=== PATIENT | female | born 1940 | race Caucasian/White ===

== ENCOUNTER 2016-05-14 08:00 | Outpatient (CLI) | payer MEDICARE, OTHER | END 2016-05-14 23:59 | disposition home or self-care (01) | DX: R61 Generalized hyperhidrosis (principal); R30.0 Dysuria; R68.83 Chills (without fever) ==

== ENCOUNTER 2016-05-28 09:38 | Outpatient (CLI) | payer MEDICARE, OTHER | END 2016-05-28 09:39 | disposition home or self-care (01) | DX: Z12.31 Encounter for screening mammogram for malignant neoplasm of breast (principal) ==

== ENCOUNTER 2016-09-30 12:06 | Outpatient (CLI) | payer MEDICARE, OTHER ==
--- NOTE | 2016-09-30 15:48 | XRAY Report ---
RIGHT HAND, THREE VIEWS: 09/30/2016 CLINICAL HISTORY: A 75-year-old female who injured her hand several days ago. FINDINGS: Significant osteoarthritis is seen in the distal interphalangeal joints of the fingers and thumbs of the right hand with relative sparing of the distal interphalangeal joint of the right ring finger. The thumb, index, middle , and little fingers show marked joint space narrowing with spurring, subchondral cyst formation, and erosive change in and about the distal interphalangeal joints. Moderate degree of narrowing is noted of proximal interphalangeal joints with mild spurring. Mild narrowing of the first, second, third, and fourth MP joints. Significant narrowing is noted at the articulation between the base of the first metacarpal and trapezium with prominent spurring extending from the radial aspect of the trapezium. Also, some spurring is noted from its ulnar aspect. Mild narrowing is noted between the navicular and trapezium/trapezoid. Mild soft tissue swelling is noted adjacent to the right navicular bone without obvious navicular bone fracture. If this is a strong area of clinical concern, additional studies such as a right wrist and special navicular bone view could be obtained for further evaluation. Soft tissue swelling is also seen about the distal interphalangeal joints of the index, middle, and little fingers related to Heberden's nodes as a result of osteoarthritis. IMPRESSION: 1. NO ACUTE FRACTURE IS SEEN IN THE RIGHT HAND. 2. SIGNIFICANT OSTEOARTHRITIC CHANGE IS DETECTED IN THE RIGHT HAND AND AT THE ARTICULATION BETWEEN THE BASE OF THE FIRST METACARPAL AND TRAPEZIUM. WITHOUT OBVIOUS FRACTURE SEEN ON ROUTINE HAND VIEWS, 3. SOFT TISSUE SWELLING IS SEEN ADJACENT TO THE NAVICULAR BONE WITHOUT FRACTURE ON HAND XRAYS. IF THIS AREA IS OF STRONG CLINICAL CONCERN, ADDITIONAL STUDIES SUCH A RIGHT WRIST AND NAVICULAR BONE COULD BE OBTAINED FOR FURTHER EVALUATION. [facility]
--- NOTE | 2016-09-30 15:56 | XRAY Preliminary Report ---
Exam: XR Hand 3 View RT IMPRESSION: 1. Severe degenerative joint disease at the right first carpal metacarpal, first interphalangeal, sec ond, third, and fifth distal interphalangeal joints. Mild to moderate degenerative disk disease in th e rest of the interphalangeal joints. Moderate volar subluxation at the third and fifth distal interp halangeal joints most likely degenerative. [facility] SITE ID: [id number]
== END 2016-09-30 12:07 | disposition home or self-care (01) ==
LOC: DI 12:06
PROVIDERS: ATTEND Physician Assistant Medical
DX: M19.041 Primary osteoarthritis, right hand (principal); M79.89 Other specified soft tissue disorders

== ENCOUNTER 2016-10-01 11:42 | Outpatient (CLI) | payer MEDICARE, OTHER ==
--- NOTE | 2016-10-01 12:49 | XRAY Report ---
FOUR-VIEW RIGHT WRIST: 10/01/2016 CLINICAL HISTORY: A 75-year-old female with wrist pain primarily at the base of the thumb. COMPARISON: None. FINDINGS: Mild soft tissue swelling is noted adjacent to the radial aspect of the articulation betwe en the base of the 1st metacarpal and adjacent trapezium. Significant osteoarthritis is noted at thi s articulation. Marked joint space narrowing is seen. Prominent subchondral cyst formation is noted along the subarticular surface of the base of 1st metacarpal. Prominent spurring is seen along the radial aspect of the trapezium. Sclerosis is seen along the adjacent articular surfaces of the base of the 1st metacarpal and trapezium. Navicular bone shows no fracture. Minimal narrowing is noted at the articulation between the navicul ar bone and trapezium. The right radiocarpal joint appears normal. The proximal row of carpal bones appears normal. IMPRESSION: 1. FOCAL SOFT TISSUE SWELLING IS SEEN ALONG THE RADIAL ASPECT OF THE ARTICULATION BETWEEN THE BASE O F THE 1ST METACARPAL AND TRAPEZIUM. SEVERE OSTEOARTHRITIS IS DETECTED AT THIS ARTICULATION. 2. NAVICULAR BONE SHOWS NO SIGNIFICANT ABNORMALITY. COMMENT: Dr. Lawson informed patient's healthcare provider, Jacinta Naranjo of the above findings. Th is was done on 10/01/2016 at 12:10 p.m. JOB #: [id number] EXT JOB #:[id number]
== END 2016-10-01 11:43 | disposition home or self-care (01) ==
LOC: DI 11:42
PROVIDERS: ATTEND Physician Assistant Medical
DX: M19.031 Primary osteoarthritis, right wrist (principal); R22.31 Localized swelling, mass and lump, right upper limb

== ENCOUNTER 2016-12-10 09:31 | Outpatient (CLI) | payer MEDICARE, OTHER ==
--- NOTE | 2016-12-10 11:36 | DEXA Report ---
DEXA SCAN: 12/10/2016 CLINICAL INDICATION: Postmenopausal screening. TECHNIQUE: Dual energy x-ray absorptiometry (DXA) was performed on a [employer] Resume system. Regions measured are the AP spine, femoral neck, and, if needed, forearm. COMPARISON: None. In accordance with the International Society for Clinical Densitometry (ISCD) guidelines, data from previous exams may be reanalyzed using current recommendations and techniques. This is done to allow a more accurate basis for comparison with the current study. The data for the hip is as follows: REGION BMD (g/cm/cm) T-SCORE Z-SCORE Neck 0.846 -1.4 0.2 TOTAL 0.939 -0.5 0.8 NOTE: The femoral neck or total proximal femur, whichever is lowest, is used for classification. The data for the forearm is as follows: REGION BMD (g/cm/cm) T-SCORE Z-SCORE 1/3 0.790 -1.0 1.3 NOTE: The 33% radius of the nondominant forearm is used for classification. IMPRESSION: 1. THE WHO CLASSIFICATION BASED ON THE INTERNATIONAL REFERENCE STANDARD IS OSTEOPENIA. THE FRACTURE RISK IS INCREASED. 2. LEFT FOREARM EVALUATION PERFORMED DUE TO HISTORY OF SPINE SURGERY. RECOMMENDATION: Patients with diagnosis of osteoporosis or osteopenia should have regular bone mineral density assessment. For those eligible for Medicare, routine testing is allowed once every 2 years. Testing frequency can be increased for patients who have rapidly progressing disease or for those who are receiving medical therapy to restore bone mass. COMMENT: World Health Organization (WHO) definitions for osteoporosis and osteopenia: NORMAL BMD: T-score at -1.0 or higher, fracture risk is low. OSTEOPENIA BMD: T-score between -1.0 and -2.5, fracture risk is increased. OSTEOPOROSIS BMD: T-score at -2.5 or lower, fracture risk high. National Osteoporosis Foundation recommends: 1. Obtain adequate dietary calcium (at least 1200 mg per day) and vitamin D (400 -800 international units per day). 2. Participate, as appropriate, in regular weightbearing and muscle- strengthening exercise. 3. Avoid tobacco use and reduce alcohol and caffeine intake. 4. For more detailed information see the website at www.NOF.org. MTDD
== END 2016-12-10 09:32 | disposition home or self-care (01) ==
LOC: DI 09:31
PROVIDERS: ATTEND Internal Medicine Rheumatology
DX: Z13.820 Encounter for screening for osteoporosis (principal); M85.89 Other specified disorders of bone density and structure, multiple sites
CPT/HCPCS: 77080

== ENCOUNTER 2017-01-14 15:57 | Outpatient (CLI) | payer MEDICARE, OTHER ==
[2017-01-14 16:38] LABS: BASOPHILS % (AUTO) 0.5 %; EOSINOPHILS # (AUTO) 0.1 10^3/uL (0.0-0.7); EOSINOPHILS % (AUTO) 0.7 %; HCT - HEMATOCRIT 42.1 % (37.0-47.0); HGB - HEMOGLOBIN 14.3 g/dL (12.0-16.0); LYMPHOCYTES # (AUTO) 1.2 10^3/uL (1.5-3.5); LYMPHOCYTES % (AUTO) 15.1 %; MEAN CORPUSCULAR HEMOGLOBIN 31.5 pg (27.0-31.0); MEAN CORPUSCULAR HGB CONC 33.8 g/dL (32.0-36.0); MEAN PLATELET VOLUME 7.5 fL (7.9-10.8); MONOCYTES # (AUTO) 0.6 10^3/uL (0.0-1.0); MONOCYTES % (AUTO) 7.9 %; NEUTROPHILS # (AUTO) 5.9 10^3/uL (1.5-6.6); NEUTROPHILS % (AUTO) 75.8 %; NUCLEATED RED BLOOD CELLS AUTO 0.1 /100WBC; RED BLOOD COUNT 4.53 10^6/uL (4.20-5.40); RED CELL DISTRIBUTION WIDTH 13.7 % (12.0-15.0); UNCORRECTED WHITE BLOOD COUNT 7.8 x10^3/uL; WHITE BLOOD COUNT 7.8 x10^3/uL (4.8-10.8)
[2017-01-14 17:42] LABS: ALBUMIN/GLOBULIN RATIO 1.4 (1.0-2.2); BILIRUBIN,TOTAL 0.7 mg/dL (0.2-1.0); BUN - BLOOD UREA NITROGEN 16 mg/dL (6-20); CALCIUM 9.8 mg/dL (8.5-10.3); CARBON DIOXIDE - CO2 25 mmol/L (21-32); CHLORIDE 103 mmol/L (101-111); CREATININE 0.8 mg/dL (0.4-1.0); GFR - MDRD 70 (>89); GLUCOSE 106 mg/dL (70-100); POTASSIUM 3.6 mmol/L (3.5-5.0); SODIUM 139 mmol/L (135-145); TOTAL PROTEIN 7.6 g/dL (6.7-8.2)
--- NOTE | 2017-01-15 10:06 | XRAY Report ---
THREE-VIEW LEFT FOOT: 01/14/2017 CLINICAL INDICATION: Foot pain. FINDINGS: AP, lateral, oblique views of the left foot demonstrate previous screw fusion of the 2nd t arsometatarsal joint. There is a nondisplaced fracture of the mid shaft of the 2nd metatarsal. Exte nsive arthritic changes are present, in the 1st and 5th metatarsophalangeal joints and interphalangea l joints. IMPRESSION: NONDISPLACED FRACTURE OF THE MID SHAFT OF THE 2ND METATARSAL. SCREW FUSION OF THE 2ND T ARSOMETATARSAL JOINT. EXTENSIVE ARTHRITIC CHANGES. JOB #: [id number] EXT JOB #:[id number]
== END 2017-01-14 15:58 | disposition home or self-care (01) ==
LOC: DI 15:57
PROVIDERS: ATTEND Physician Assistant Medical
DX: S92.325A Nondisplaced fracture of second metatarsal bone, left foot, initial encounter for closed fracture (principal); L40.50 Arthropathic psoriasis, unspecified; Z98.1 Arthrodesis status
CPT/HCPCS: 36415; 80053; 84550; 85025; 85651; 86140

== ENCOUNTER 2017-02-24 11:28 | Outpatient (CLI) | payer MEDICARE, OTHER ==
--- NOTE | 2017-02-24 13:01 | XRAY Report ---
MODIFIED BARIUM SWALLOW: 02/24/2017 CLINICAL INDICATION: Dysphagia. FINDINGS: Various consistencies of barium were prepared and administered in conjunction with Speech Pathology. There was no evidence of penetration or aspiration with any administered consistency. Pl ease also refer to full report from Speech Pathology. IMPRESSION: NO EVIDENCE OF PENETRATION OR ASPIRATION. FLUOROSCOPY TIME: 1 minute, 8 seconds; 1 spot image obtained (cinefluoroscopy recorded). JOB #: [id number] EXT JOB #:[id number]
== END 2017-02-24 11:29 | disposition home or self-care (01) ==
LOC: DI 11:28
PROVIDERS: ATTEND Physician Assistant Medical
DX: R13.10 Dysphagia, unspecified (principal)
CPT/HCPCS: 74230; 92611; G8996; G8997; G8998

== ENCOUNTER 2017-03-31 14:55 | Outpatient (CLI) | payer MEDICARE, OTHER ==
[2017-03-31 15:17] LABS: BASOPHILS # (AUTO) 0.1 10^3/uL (0.0-0.1); BASOPHILS % (AUTO) 0.9 %; EOSINOPHILS # (AUTO) 0.3 10^3/uL (0.0-0.7); EOSINOPHILS % (AUTO) 2.7 %; HCT - HEMATOCRIT 40.7 % (37.0-47.0); LYMPHOCYTES % (AUTO) 20.4 %; MEAN CORPUSCULAR HEMOGLOBIN 31.7 pg (27.0-31.0); MEAN CORPUSCULAR HGB CONC 34.5 g/dL (32.0-36.0); MEAN CORPUSCULAR VOLUME 91.8 fL (81.0-99.0); MEAN PLATELET VOLUME 7.5 fL (7.9-10.8); MONOCYTES % (AUTO) 9.7 %; NEUTROPHILS # (AUTO) 6.6 10^3/uL (1.5-6.6); NEUTROPHILS % (AUTO) 66.3 %; RED BLOOD COUNT 4.43 10^6/uL (4.20-5.40); RED CELL DISTRIBUTION WIDTH 13.5 % (12.0-15.0)
[2017-03-31 15:28] LABS: ALBUMIN/GLOBULIN RATIO 1.3 (1.0-2.2); BILIRUBIN,TOTAL 0.5 mg/dL (0.2-1.0); CALCIUM 9.3 mg/dL (8.5-10.3); CREATININE 0.8 mg/dL (0.4-1.0); POTASSIUM 3.7 mmol/L (3.5-5.0); TOTAL PROTEIN 6.8 g/dL (6.7-8.2)
--- NOTE | 2017-03-31 15:50 | XRAY Report ---
TWO VIEW CHEST: 03/31/2017 CLINICAL INDICATION: Cough. COMPARISON: 12/29/2015. FINDINGS: Frontal and lateral views of the chest demonstrate a normal cardiac silhouette. A moderate hiatal hernia is present. The lungs are clear. No effusion or pneumothorax is present. IMPRESSION: MODERATE HIATAL HERNIA. NO EVIDENCE OF ACUTE CARDIOPULMONARY DISEASE. JOB #: [id number] EXT JOB #:[id number]
== END 2017-03-31 14:56 | disposition home or self-care (01) ==
LOC: DI 14:55
PROVIDERS: ATTEND Physician Assistant Medical
DX: R05 Cough (principal); K44.9 Diaphragmatic hernia without obstruction or gangrene; Z79.899 Other long term (current) drug therapy
CPT/HCPCS: 36415; 71020; 80053; 85025

== ENCOUNTER 2017-04-11 09:31 | Outpatient (CLI) | payer MEDICARE, OTHER ==
--- NOTE | 2017-04-11 13:55 | CT Report ---
CT OF THE CHEST WITHOUT CONTRAST: 04/11/2017 CLINICAL INDICATION: Cough. COMPARISON: Chest x-ray of 03/31/2017, CT of chest of 05/27/2013. TECHNIQUE: Axial CT images of the chest were obtained without intravenous contrast. FINDINGS: The heart and great vessels demonstrate minimal atherosclerotic calcifications. No hilar o r mediastinal lymphadenopathy is present. A moderate hiatal hernia is seen. The lungs demonstrate min imal dependent atelectasis. No pulmonary nodule or mass lesion is present. No effusion or pneumothora x is seen. The osseous structures demonstrate degenerative changes. Limited evaluation of upper abdom inal structures demonstrates normal adrenal glands. IMPRESSION: MINIMAL ATELECTASIS. MODERATE HIATAL HERNIA. NO PULMONARY NODULE OR MASS LESION. In accordance with CT protocol optimization, one or more of the following dose reduction techniques w ere utilized for this exam: automated exposure control, adjustment of mA and/or KV based on patient size, or use of iterative reconstructive technique. JOB #: [id number] EXT JOB #:[id number]
== END 2017-04-11 09:32 | disposition home or self-care (01) ==
LOC: DI 09:31
PROVIDERS: ATTEND Physician Assistant Medical
DX: R05 Cough (principal); J98.11 Atelectasis; K44.9 Diaphragmatic hernia without obstruction or gangrene
CPT/HCPCS: 71250

== ENCOUNTER 2017-05-04 16:22 | Emergency (ER) | payer MEDICARE, OTHER ==
[2017-05-04 16:27] VITALS: BP 164/84
[2017-05-04] MEDS ORDERED: LIDOCAINE 1% 2 ML VIAL SUBQ STA (16:44)
--- NOTE | 2017-05-04 16:44 | ED Physician Documentation ---
PD HPI LOWER EXT INJURY - Stated complaint Stated Complaint: R LEG LAC - Chief complaint Chief Complaint: Laceration - History obtained from History obtained from: Patient - History of Present Illness PD HPI LOW EXT INJURY LOCATION: Right, Lower leg Type of injury: Blunt / blow Where injury occurred: Home Timing - onset: Today Timing - duration: Minutes Timing - details: Abrupt onset, Still present Improved by: Rest, Immobilization Worsened by: Moving, Palpating Associated symptoms: No: Weakness, Numbness, Tingling Contributing factors: No: Anticoagulated Similar symptoms before: Diagnosis (thin skin laceration) Recently seen: Not recently seen - Additional information Additional information: 76-year-old female went to lunch today and was getting back into her car when the door hit her lower leg. She has thin skin and has a tear of the skin on her right calf. Review of Systems Constitutional: denies: Fever Eyes: denies: Decreased vision Nose: denies: Congestion Respiratory: denies: Cough GI: denies: Vomiting Skin: reports: Laceration (s) Musculoskeletal: reports: Extremity pain. denies: Neck pain, Back pain Neurologic: denies: Generalized weakness, Focal weakness PD PAST MEDICAL HISTORY - Past Medical History Past Medical History: Yes Cardiovascular: Atrial fibrillation Respiratory: None, Pneumonia Neuro: None Endocrine/Autoimmune: None GI: None COOK STARCH: None : None HEENT: None Psych: None Musculoskeletal: Other Derm: Psoriasis - Past Surgical History Past Surgical History: Yes General: Cholecystectomy, Appendectomy, Colonoscopy Ortho: Other /COOK STARCH: Dilation and currettage, Hysterectomy - Present Medications Home Medications: Ambulatory Orders Medication Instructions Recorded Confirmed Aspirin [Aspir 81] 81 mg PO DAILY 11/08/12 12/29/15 Hydrochlorothiazide 25 mg PO DAILY 11/08/12 12/29/15 Multivitamin [Multi-Vitamin Daily] 1 each PO DAILY 11/08/12 12/29/15 [place]-3/Dha/Epa/Fish Oil [Fish Oil 2 each PO DAILY 11/08/12 12/29/15 1,000 mg Softgel] Pantoprazole Sodium [Protonix] 20 mg PO BID 11/08/12 12/29/15 Potassium Gluconate [Potassium] 10 meq PO DAILY 11/08/12 12/29/15 Vit C/Ascorbate Ca/Ascorb Sod 500 mg PO DAILY 11/08/12 12/29/15 [Vitamin C 500 mg/15 ml Liquid] traMADol [Ultram] 100 mg PO Q6H 11/08/12 12/29/15 Celecoxib [CeleBREX] 200 mg PO DAILY 05/27/13 12/29/15 Estrogens, Conjugated [Premarin] 0.3 mg PO 05/27/13 01/25/15 diltiaZEM CD [Cardizem Cd] 300 mg PO DAILY 05/27/13 12/29/15 Calcium Carb/D3/Magnesium/Zinc 1 tab PO DAILY 01/24/15 12/29/15 [Tate Mag Zinc + D Tablet] Cholecalciferol (Vitamin D3) 2,000 unit PO DAILY 01/24/15 12/29/15 [Vitamin D-3] Vitamin B Complex [B Complex] 1 tab PO DAILY 01/24/15 12/29/15 Cyclosporine [Restasis] 1 applic OP BID 12/29/15 12/29/15 Etanercept [Enbrel] 50 mg SQ 12/29/15 Gabapentin [Gabapentin] 400 mg ORAL DAILY 12/29/15 12/29/15 Lidocaine [Lidocaine] 1 patch TOP DAILY 12/29/15 12/29/15 Magnesium Oxide [Magnesium] 400 mg PO 12/29/15 Prednisone 1 tab ORAL DAILY 12/29/15 12/29/15 Solifenacin Succinate [Vesicare] 1 tab ORAL DAILY 12/29/15 12/29/15 - Allergies Allergies/Adverse Reactions: Allergies Allergy/AdvReac Type Severity Reaction Status Date / Time leflunomide AdvReac Emesis Verified 12/29/15 11:03 methotrexate AdvReac Unknown Verified 12/29/15 11:03 milk AdvReac Cramps Verified 12/29/15 11:03 mushroom AdvReac Nausea Verified 12/29/15 11:03 - Social History Does the pt smoke?: Yes Smoking Status: Former smoker Does the pt have substance abuse?: No - Immunizations Immunizations are current?: Yes - POLST Patient has POLST: No PD ED PE NORMAL - Vitals Vital signs reviewed: Yes (hypertensive) - General General: No acute distress, Well developed/nourished - HEENT HEENT: Atraumatic, PERRL - Respiratory Respiratory: No respiratory distress - Derm Derm: Normal color, Warm and dry, No rash - Extremities Extremities: No deformity, No edema, Other (There is a 4cm flap laceration over the anterior right calf about mid calf. Distal n/v is intact. The wound is clean. ) Results - Vitals Vitals: Vital Signs - 24 hr 05/04/ 16:26 Temperature 36.0 C L Heart Rate 87 Respiratory 16 Rate Blood Pressure 164/84 H O2 Saturation 97 Oxygen O2 Source Room air Procedures - Laceration (location) left calf Length in cm: 4 Wound type: Curved, Flap, Clean Neurovascular status: Sensory intact, Motor intact, Vascular intact Anesthesia: Lidocaine 1% Wound Preparation: Hibiclens, Irrigated copiously NS, Wound explored, To the base Skin layer closure: Nylon, Interrupted, Size #-0 - enter number (5-0), Sutures - enter # (10) Other: Patient tolerated well, No complications, Neurovascular intact, Dressing applied, Tetanus UTD Complexity: Simple PD MEDICAL DECISION MAKING - ED course Complexity details: considered differential, d/w patient ED course: 76-year-old female with thin skin and a flap laceration on the calf has a distraction of the flap and sutures are indicated. Sutures are placed without difficulty the patient is up-to-date on her immunizations. Departure - Departure Disposition: 01 Home, Self Care Clinical Impression: Laceration of calf Qualifiers: Encounter type: initial encounter Laterality: right Qualified Code(s): S81.811A - Laceration without foreign body, right lower leg, initial encounter Condition: Stable Instructions: ED Laceration All Follow-Up: Jacinta Naranjo PA-C [Primary Care Provider] - Comments: Sutures will need to be removed and 10-14 days
== END 2017-05-04 17:21 | disposition home or self-care (01) ==
LOC: ED 16:22
DX: S81.811A Laceration without foreign body, right lower leg, initial encounter (principal); V48.4XXA Person boarding or alighting a car injured in noncollision transport accident, initial encounter; Z79.82 Long term (current) use of aspirin; Z87.891 Personal history of nicotine dependence
CPT/HCPCS: 12002; 99282; 99283

== ENCOUNTER 2017-08-11 08:01 | Outpatient (CLI) | payer MEDICARE, OTHER ==
[2017-08-11 08:39] LABS: CREATININE 0.8 mg/dL (0.4-1.0)
[2017-08-11] MEDS ORDERED: GADOBUTROL 7.5 MMOL/7.5 ML VIAL ONE (09:38)
[2017-08-11] MEDS ORDERED: GADOBUTROL 7.5 MMOL/7.5 ML VIAL IVP ONE (10:02)
--- NOTE | 2017-08-11 19:17 | MRI Report ---
EXAM: MRI PELVIS WITHOUT AND WITH CONTRAST EXAM DATE: 08/11/2017 10:16 AM. CLINICAL HISTORY: HIP JOINT PAIN, LEG PAIN, LEFT. COMPARISON: None. TECHNIQUE: Multiplanar, multisequence T1-weighted and fluid-sensitive sequences of the pelvis before and after administration of intravenous contrast. IV contrast: Gadolinium. Other: None. FINDINGS: Bones: No fractures or subluxations. No marrow edema or abnormal enhancement. No bone lesions. Lower Lumbar Spine: Unremarkable. Sacroiliac Joints: No effusion or sacroiliitis. Right Hip: No acetabular retroversion. Femoral head/neck offset is within normal limits. No effusion. Left Hip: No acetabular retroversion. Femoral head/neck offset is within normal limits. No effusion. Symphysis Pubis: Unremarkable. Musculature: Partial tear is noted of the proximal hamstring common tendon and proximal semimembranos us tendon. There is synovial thickening and increased signal inferior aspect ischial tuberosity likel y secondary to bursitis. Pelvic Cavity: The visualized bowel, bladder, and reproductive organs are unremarkable. No lymphadeno zehra. No free fluid in the pelvis. Other: The visualized sciatic nerves are unremarkable. No bursitis. The subcutaneous tissues are unre markable. No abscess or cellulitis. 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 [facility] MUSCULOSKELETAL RADIOLOGY SECTION Referring Provider Line: [phone] SITE ID: [id number]
== END 2017-08-11 08:02 | disposition home or self-care (01) ==
LOC: LAB 08:01
PROVIDERS: ATTEND Physician Assistant Medical
DX: S76.892A Other injury of other specified muscles, fascia and tendons at thigh level, left thigh, initial encounter (principal); Z79.899 Other long term (current) drug therapy
CPT/HCPCS: 36415; 72197; 82565; A9585

== ENCOUNTER 2017-09-04 10:54 | Outpatient (CLI) | payer MEDICARE, OTHER ==
[2017-09-04] MEDS ORDERED: IOPAMIDOL-300 100 ML VIAL ONE (11:32)
[2017-09-04] MEDS ORDERED: IOPAMIDOL-300 50 ML VIAL ONE (11:32)
[2017-09-04] MEDS ORDERED: IOPAMIDOL-300 50 ML VIAL PO ONE (15:51)
[2017-09-04] MEDS ORDERED: IOPAMIDOL-300 100 ML VIAL IVP ONE (15:51)
--- NOTE | 2017-09-04 17:34 | CT Report ---
CT ABDOMEN AND PELVIS WITH CONTRAST: 09/04/2017 CLINICAL INDICATION: Night sweats. TECHNIQUE: Axial CT images of the abdomen and pelvis were obtained with 100 mL Isovue-300 intravenously as well as oral contrast. COMPARISON: No previous CT is available for comparison. FINDINGS: Limited evaluation of the lung bases demonstrates a moderate hiatal hernia. ABDOMEN: There is a small cyst in the left lobe of the liver. No suspicious hepatic lesion or intrahepatic biliary dilatation is present. The patient is status post cholecystectomy. The spleen, pancreas, kidneys and adrenal glands are unremarkable. No bowel dilatation, free gas, or free fluid is present. No abdominal adenopathy is seen. PELVIS: Sigmoid diverticulosis is present, without CT evidence of diverticulitis. Postoperative changes of hysterectomy are present. No pelvic adenopathy or free fluid is present. Osseous structures demonstrate degenerative and postsurgical changes. IMPRESSION: NO EVIDENCE OF ADENOPATHY. POSTOPERATIVE CHANGES. CT DOSE REDUCTION STATEMENT In accordance with CT protocol optimization, one or more of the following dose reduction techniques were utilized for this exam: automated exposure control, adjustment of mA and/or KV based on patient size, or use of iterative reconstructive technique. TD: 09/04/2017 17:32
== END 2017-09-04 10:55 | disposition home or self-care (01) ==
LOC: DI 10:54
PROVIDERS: ATTEND Physician Assistant Medical
DX: R61 Generalized hyperhidrosis (principal)
CPT/HCPCS: 74177; Q9967

== ENCOUNTER 2017-09-25 11:37 | Outpatient (CLI) | payer MEDICARE, OTHER ==
[2017-09-25 12:01] LABS: BASOPHILS % (AUTO) 0.3 %; EOSINOPHILS # (AUTO) 0.1 10^3/uL (0.0-0.7); EOSINOPHILS % (AUTO) 0.4 %; LYMPHOCYTES # (AUTO) 0.6 10^3/uL (1.5-3.5); LYMPHOCYTES % (AUTO) 4.2 %; MEAN CORPUSCULAR HGB CONC 33.7 g/dL (32.0-36.0); MEAN CORPUSCULAR VOLUME 97.8 fL (81.0-99.0); MEAN PLATELET VOLUME 8.1 fL (7.9-10.8); MONOCYTES # (AUTO) 1.3 10^3/uL (0.0-1.0); MONOCYTES % (AUTO) 9.2 %; NEUTROPHILS # (AUTO) 12.4 10^3/uL (1.5-6.6); NEUTROPHILS % (AUTO) 85.9 %; PLT - PLATELET COUNT 217 10^3/uL (130-450); RED BLOOD COUNT 4.55 10^6/uL (4.20-5.40); RED CELL DISTRIBUTION WIDTH 13.8 % (12.0-15.0); WHITE BLOOD COUNT 14.5 x10^3/uL (4.8-10.8)
[2017-09-25 12:14] LABS: ALBUMIN 3.7 g/dL (3.2-5.5); BILIRUBIN,TOTAL 1.3 mg/dL (0.2-1.0); CALCIUM 9.2 mg/dL (8.5-10.3); CREATININE 0.7 mg/dL (0.4-1.0); TOTAL PROTEIN 7.4 g/dL (6.7-8.2)
[2017-09-25 12:21] LABS: BILIRUBIN,URINE NEGATIVE (NEGATIVE); GLUCOSE, URINE (UA) NEGATIVE (NEGATIVE); KETONES,URINE (UA) 15 mg/dL (NEGATIVE); LEUKOCYTE ESTERASE, URINE NEGATIVE (NEGATIVE); NITRITE,URINE NEGATIVE (NEGATIVE); OCCULT BLOOD,URINE NEGATIVE (NEGATIVE); PH,URINE 5.5 PH (5.0-7.5); PROTEIN,URINE 30 mg/dL (NEGATIVE); UROBILINOGEN,URINE 0.2 (NORMAL) E.U./dL (NORMAL)
[2017-09-25 12:25] LABS: CLARITY,URINE SL. CLOUDY (CLEAR)
[2017-09-25 12:42] LABS: BACTERIA,URINE Moderate /HPF (None Seen); CASTS, URINE 0-2 Cellular Casts /LPF; MUCUS,URINE Moderate Strands; RBC,URINE None Seen /HPF (0-5); SQUAMOUS EPITHELIAL CELL,UR MOD Squamous (<= Few)
--- NOTE | 2017-09-25 13:00 | XRAY Report ---
TWO VIEW CHEST: 09/25/2017 CLINICAL INDICATION: Upper respiratory infection, fever. COMPARISON: 03/31/2017. FINDINGS: Frontal and lateral views of the chest demonstrate a normal cardiac silhouette. Hiatal hernia is again noted. There are patchy peripheral infiltrates present in the left lung. No effusion or pneumothorax is seen. IMPRESSION: PATCHY PERIPHERAL INFILTRATES IN THE LEFT LUNG. TD: 09/25/2017 12:38
== END 2017-09-25 11:38 | disposition home or self-care (01) ==
LOC: LAB 11:37
PROVIDERS: ATTEND Physician Assistant Medical
DX: R91.8 Other nonspecific abnormal finding of lung field (principal); R32 Unspecified urinary incontinence; R50.9 Fever, unspecified; J06.9 Acute upper respiratory infection, unspecified
CPT/HCPCS: 36415; 71046; 80053; 81001; 81003; 85025; 87040; 87086

== ENCOUNTER 2017-10-09 09:30 | Outpatient (CLI) | payer MEDICARE, OTHER | END 2017-10-09 09:31 | LOC: LAB.R 09:30 | PROVIDERS: ATTEND Physician Assistant Medical | DX: N30.00 Acute cystitis without hematuria (principal) | CPT/HCPCS: 87077; 87086; 87181 ==

== ENCOUNTER 2017-10-10 09:51 | Emergency (ER) | payer MEDICARE, OTHER ==
[2017-10-10] MEDS ORDERED: SODIUM CHLORIDE 0.9% 1,000 ML IV ONE (10:13)
[2017-10-10] MEDS ORDERED: cefTRIAXone 1 GM in SODIUM CHLORIDE 0.9% MINIBAG 100 ML IV STA (10:13)
--- NOTE | 2017-10-10 10:16 | ED Physician Documentation ---
PD HPI BACK PAIN - Stated complaint Stated Complaint: LOWER BACK PX - Chief complaint Chief Complaint: General - History obtained from History obtained from: Patient, Family - History of Present Illness Timing - onset: Yesterday Timing - duration: Days (1) Timing - details: Gradual onset, Still present Location: Mid, Left Quality: Pain, Spasm, Sharp Associated symptoms: No: Fever, Weakness, Numbness Improves with: Rest, Position Worsened by: Movement, Palpation Contributing factors: Other (has UTI) Similar symptoms before: Has not had sx before Recently seen: Clinic - Additional information Additional information: 76-year-old female with a history of atrial fibrillation has developed acute pain in her left flank. She was diagnosed yesterday with urinary tract infection and put on Keflex. She developed the pain later in the afternoon. She has not had nausea or vomiting. She has had the onset of the pain associated with movement. She has pain with movement and palpation and the pain appears to be over the left kidney area. She has not had fever. Review of Systems Constitutional: denies: Fever Eyes: denies: Decreased vision Ears: denies: Ear pain Nose: denies: Rhinorrhea / runny nose, Congestion Throat: denies: Sore throat Cardiac: denies: Chest pain / pressure, Palpitations Respiratory: denies: Dyspnea, Cough GI: reports: Abdominal Pain. denies: Nausea, Vomiting : reports: Dysuria, Frequency Skin: denies: Rash Musculoskeletal: reports: Back pain. denies: Neck pain, Extremity pain PD PAST MEDICAL HISTORY - Past Medical History Past Medical History: Yes Cardiovascular: Atrial fibrillation Respiratory: None, Pneumonia Endocrine/Autoimmune: None GI: None CARPET TECHNICIAN: None : Kidney stones HEENT: None Psych: None Musculoskeletal: Other Derm: Psoriasis - Past Surgical History Past Surgical History: Yes General: Cholecystectomy, Appendectomy, Colonoscopy Ortho: Other /CARPET TECHNICIAN: Dilation and currettage, Hysterectomy - Present Medications Home Medications: Ambulatory Orders Medication Instructions Recorded Confirmed Aspirin [Aspir 81] 81 mg PO DAILY 11/08/12 12/29/15 Hydrochlorothiazide 25 mg PO DAILY 11/08/12 12/29/15 Multivitamin [Multi-Vitamin Daily] 1 each PO DAILY 11/08/12 12/29/15 [place]-3/Dha/Epa/Fish Oil [Fish Oil 2 each PO DAILY 11/08/12 12/29/15 1,000 mg Softgel] Pantoprazole Sodium [Protonix] 20 mg PO BID 11/08/12 12/29/15 Potassium Gluconate [Potassium] 10 meq PO DAILY 11/08/12 12/29/15 Vit C/Ascorbate Ca/Ascorb Sod 500 mg PO DAILY 11/08/12 12/29/15 [Vitamin C 500 mg/15 ml Liquid] traMADol [Ultram] 100 mg PO Q6H 11/08/12 12/29/15 Celecoxib [CeleBREX] 200 mg PO DAILY 05/27/13 12/29/15 Estrogens, Conjugated [Premarin] 0.3 mg PO 05/27/13 01/25/15 diltiaZEM CD [Cardizem Cd] 300 mg PO DAILY 05/27/13 12/29/15 Calcium Carb/D3/Magnesium/Zinc 1 tab PO DAILY 01/24/15 12/29/15 [Tate Mag Zinc + D Tablet] Cholecalciferol (Vitamin D3) 2,000 unit PO DAILY 01/24/15 12/29/15 [Vitamin D-3] Vitamin B Complex [B Complex] 1 tab PO DAILY 01/24/15 12/29/15 Cyclosporine [Restasis] 1 applic OP BID 12/29/15 12/29/15 Etanercept [Enbrel] 50 mg SQ 12/29/15 Gabapentin [Gabapentin] 400 mg ORAL DAILY 12/29/15 12/29/15 Lidocaine [Lidocaine] 1 patch TOP DAILY 12/29/15 12/29/15 Magnesium Oxide [Magnesium] 400 mg PO 12/29/15 Prednisone 1 tab ORAL DAILY 12/29/15 12/29/15 Solifenacin Succinate [Vesicare] 1 tab ORAL DAILY 12/29/15 12/29/15 HYDROcod/ACETAM 5/325 [[place] 5/325] 1 - 2 ea PO Q6H PRN #15 tablet 10/10/17 - Allergies Allergies/Adverse Reactions: Allergies Allergy/AdvReac Type Severity Reaction Status Date / Time leflunomide AdvReac Emesis Verified 12/29/15 11:03 methotrexate AdvReac Unknown Verified 12/29/15 11:03 milk AdvReac Cramps Verified 12/29/15 11:03 mushroom AdvReac Nausea Verified 12/29/15 11:03 - Social History Does the pt smoke?: Yes Smoking Status: Current every day smoker Does the pt drink ETOH?: Yes Does the pt have substance abuse?: No - Immunizations Immunizations are current?: Yes - POLST Patient has POLST: No PD ED PE NORMAL - Vitals Vital signs reviewed: Yes (hypertensive ) - General General: Alert and oriented X 3, No acute distress, Well developed/nourished - HEENT HEENT: Atraumatic, PERRL, EOMI - Neck Neck: Supple, no meningeal sign - Cardiac Cardiac: RRR, No murmur - Respiratory Respiratory: No respiratory distress, Clear bilaterally - Abdomen Abdomen: Soft, Non tender - Back Back: No spinal TTP, Other (There is tenderness to palpation over the left kidney. There is no overlying rib tenderness and the kidney is sonographically tender to palpaiton with the bedside ultrasound. ) - Derm Derm: Normal color, Warm and dry, No rash - Extremities Extremities: No deformity, No edema - Neuro Neuro: No motor deficit, No sensory deficit Eye Opening: Spontaneous Motor: Obeys Commands Verbal: Oriented GCS Score: 15 - Psych Psych: Normal mood, Normal affect Results - Vitals Vitals: Vital Signs - 24 hr 10/10/17 09:53 Temperature 36.4 C L Heart Rate 75 Respiratory 20 Rate Blood Pressure 149/79 H O2 Saturation 100 Oxygen O2 Source Room air - Labs Labs: Laboratory Tests 10/10/17 10/10/17 10/10/17 10:26 10:35 10:35 WBC 7.3 RBC 4.44 Hgb 14.5 Hct 42.7 MCV 96.0 MCH 32.6 H MCHC 33.9 RDW 13.2 Plt Count 489 H MPV 7.7 L Neut # (Auto) 3.7 Lymph # (Auto) 2.5 [place] # (Auto) 0.8 Eos # (Auto) 0.2 Baso # (Auto) 0.1 Absolute Nucleated RBC 0.00 Nucleated RBC % 0.0 Sodium 140 Potassium 3.6 Chloride 105 Carbon Dioxide 26 Anion Gap 9.0 BUN 9 Creatinine 0.7 Estimated GFR (MDRD) 82 L Glucose 91 Calcium 9.4 Total Bilirubin 0.6 AST 25 ALT 21 Alkaline Phosphatase 59 Troponin I Total Protein 7.0 Albumin 3.9 Globulin 3.1 Albumin/Globulin Ratio 1.3 Lipase 31 Urine Color YELLOW Urine Clarity CLEAR Urine pH 6.0 Ur Specific [place] 1.020 Urine Protein TRACE Urine Glucose (UA) NEGATIVE Urine Ketones TRACE Urine Occult Blood NEGATIVE Urine Nitrite NEGATIVE Urine Bilirubin NEGATIVE Urine Urobilinogen 0.2 (NORMAL) Ur Leukocyte Esterase NEGATIVE Ur Microscopic Review NOT INDICATED Urine Culture Comments NOT INDICATED 10/10/17 10:35 WBC RBC Hgb Hct MCV MCH MCHC RDW Plt Count MPV Neut # (Auto) Lymph # (Auto) [place] # (Auto) Eos # (Auto) Baso # (Auto) Absolute Nucleated RBC Nucleated RBC % Sodium Potassium Chloride Carbon Dioxide Anion Gap BUN Creatinine Estimated GFR (MDRD) Glucose Calcium Total Bilirubin AST ALT Alkaline Phosphatase Troponin I < 0.04 Total Protein Albumin Globulin Albumin/Globulin Ratio Lipase Urine Color Urine Clarity Urine pH Ur Specific [place] Urine Protein Urine Glucose (UA) Urine Ketones Urine Occult Blood Urine Nitrite Urine Bilirubin Urine Urobilinogen Ur Leukocyte Esterase Ur Microscopic Review Urine Culture Comments Procedures - Bedside sono Bedside sono by EMP: With use of bedside ultrasound the left kidney is imaged and it is sonographically tender without evidence of hydronephrosis or fluid collection. - IVC sono (time) 1002 Bedside IVC sono: IVC measures (cm) (1.12), IVC collapsed c insp (cm) (complete) , Dehydration (est 1-2 liters deficit) PD MEDICAL DECISION MAKING - ED course Complexity details: reviewed old records, reviewed results, re-evaluated patient , considered differential, d/w patient, d/w family ED course: 76-year-old female with an area in her back that is specifically tender and around the the left kidney has been treated for urinary tract infection yesterday. Despite relatively few doses of antibiotic the patient's urine looks entirely clear here today. Examination of the back reveals a specific area of tenderness and examination with the bedside ultrasound reveals this area is over the kidney but other areas where the kidney is palpated do not cause tenderness. My conclusion from this is that this patient's back pain is likely musculoskeletal in nature and not secondary to pyelonephritis. Here in the emergency department she was found to be mildly dehydrated she was administered a liter of saline and 1 g of Rocephin. She will continue her antibiotic and the urine culture from yesterday is pending. Departure - Departure Disposition: 01 Home, Self Care Clinical Impression: Back muscle spasm Condition: Stable Instructions: ED Spasm Back No Trauma Follow-Up: Jacinta Naranjo PA-C [Primary Care Provider] - Prescriptions: HYDROcod/ACETAM 5/325 [[place] 5/325] 1 - 2 ea PO Q6H PRN #15 tablet PRN Reason: Pain
[2017-10-10 10:38] LABS: BILIRUBIN,URINE NEGATIVE (NEGATIVE); CLARITY,URINE CLEAR (CLEAR); GLUCOSE, URINE (UA) NEGATIVE (NEGATIVE); KETONES,URINE (UA) TRACE mg/dL (NEGATIVE); LEUKOCYTE ESTERASE, URINE NEGATIVE (NEGATIVE); NITRITE,URINE NEGATIVE (NEGATIVE); OCCULT BLOOD,URINE NEGATIVE (NEGATIVE); PROTEIN,URINE TRACE mg/dL (NEGATIVE); UROBILINOGEN,URINE 0.2 (NORMAL) E.U./dL (NORMAL)
[2017-10-10 10:42] LABS: BASOPHILS # (AUTO) 0.1 10^3/uL (0.0-0.1); BASOPHILS % (AUTO) 1.4 %; EOSINOPHILS # (AUTO) 0.2 10^3/uL (0.0-0.7); EOSINOPHILS % (AUTO) 2.8 %; HGB - HEMOGLOBIN 14.5 g/dL (12.0-16.0); LYMPHOCYTES # (AUTO) 2.5 10^3/uL (1.5-3.5); LYMPHOCYTES % (AUTO) 33.7 %; MEAN CORPUSCULAR HEMOGLOBIN 32.6 pg (27.0-31.0); MEAN CORPUSCULAR HGB CONC 33.9 g/dL (32.0-36.0); MEAN PLATELET VOLUME 7.7 fL (7.9-10.8); MONOCYTES # (AUTO) 0.8 10^3/uL (0.0-1.0); MONOCYTES % (AUTO) 10.9 %; NEUTROPHILS # (AUTO) 3.7 10^3/uL (1.5-6.6); NEUTROPHILS % (AUTO) 51.2 %; PLT - PLATELET COUNT 489 10^3/uL (130-450); RED BLOOD COUNT 4.44 10^6/uL (4.20-5.40); RED CELL DISTRIBUTION WIDTH 13.2 % (12.0-15.0); WHITE BLOOD COUNT 7.3 x10^3/uL (4.8-10.8)
[2017-10-10 10:56] LABS: ALBUMIN 3.9 g/dL (3.2-5.5); ALBUMIN/GLOBULIN RATIO 1.3 (1.0-2.2); BILIRUBIN,TOTAL 0.6 mg/dL (0.2-1.0); CALCIUM 9.4 mg/dL (8.5-10.3); CREATININE 0.7 mg/dL (0.4-1.0)
[2017-10-10 11:59] VITALS: BP 138/74
== END 2017-10-10 11:59 | disposition home or self-care (01) ==
LOC: ED 09:51
DX: M62.830 Muscle spasm of back (principal); E86.0 Dehydration; F17.200 Nicotine dependence, unspecified, uncomplicated
CPT/HCPCS: 36415; 80053; 81001; 81003; 83690; 84484; 85025; 87086; 96361; 96365; 99283; 99284

== ENCOUNTER 2017-10-21 16:48 | Outpatient (CLI) | payer MEDICARE, OTHER ==
--- NOTE | 2017-10-22 08:25 | XRAY Report ---
Procedure Date: 10/21/2017 Accession Number: [id number] / [id number] Procedure: XR - Chest 2 View X-Ray CPT Code: 85993 FULL RESULT: EXAM: Chest 2 View X-Ray DATE: 10/21/2017 5:16 PM CLINICAL HISTORY: CHEST WALL MASS,RIGHT COMPARISON: 09/25/2017 TECHNIQUE: 2 view chest FINDINGS: The cardiac silhouette is mildly enlarged. Moderate hiatal hernia is stable. Patchy left infiltrates have resolved. No effusion or pneumothorax is seen. No definite abnormal calcification or ossification is appreciated in the right lateral chest wall included on the film. IMPRESSION: No definite chest wall mass identified. Further evaluation with CT or MRI may be helpful. Resolution of previously seen left-sided infiltrates. Stable cardiomegaly and hiatal hernia.
== END 2017-10-21 16:49 | disposition home or self-care (01) ==
LOC: DI 16:48
PROVIDERS: ATTEND Nurse Practitioner Primary Care
DX: R22.2 Localized swelling, mass and lump, trunk (principal); I51.7 Cardiomegaly; K44.9 Diaphragmatic hernia without obstruction or gangrene
CPT/HCPCS: 71046

== ENCOUNTER 2018-02-02 08:00 | Outpatient (CLI) | payer MEDICARE, OTHER | END 2018-02-02 08:01 | disposition home or self-care (01) | LOC: LAB.R 08:00 | PROVIDERS: ATTEND Physician Assistant Medical | DX: N30.00 Acute cystitis without hematuria (principal) | CPT/HCPCS: 87077; 87086; 87181 ==

== ENCOUNTER 2018-06-23 12:12 | Outpatient (CLI) | payer MEDICARE, OTHER | END 2018-06-23 12:13 | disposition home or self-care (01) | LOC: LAB 12:12 | PROVIDERS: ATTEND Internal Medicine Rheumatology | DX: M35.3 Polymyalgia rheumatica (principal); M15.0 Primary generalized (osteo)arthritis | CPT/HCPCS: 36415; 85651; 86140 ==

== ENCOUNTER 2018-12-14 11:00 | Outpatient (CLI) | payer MEDICARE, OTHER | END 2018-12-14 11:10 | disposition home or self-care (01) | LOC: LAB.R 11:00 | PROVIDERS: ATTEND Nurse Practitioner | DX: R30.0 Dysuria (principal) | CPT/HCPCS: 87086 ==

== ENCOUNTER 2018-12-14 12:35 | Emergency (ER) | payer MEDICARE, OTHER ==
[2018-12-14] MEDS ORDERED: diltiaZEM 30 MG TABLET PO STA (13:38)
[2018-12-14 14:00] LABS: BASOPHILS # (AUTO) 0.1 10^3/uL (0.0-0.1); BASOPHILS % (AUTO) 0.5 %; EOSINOPHILS # (AUTO) 0.1 10^3/uL (0.0-0.7); EOSINOPHILS % (AUTO) 0.5 %; HGB - HEMOGLOBIN 12.4 g/dL (12.0-16.0); LYMPHOCYTES # (AUTO) 1.5 10^3/uL (1.5-3.5); LYMPHOCYTES % (AUTO) 8.2 %; MEAN CORPUSCULAR HEMOGLOBIN 28.2 pg (27.0-31.0); MEAN CORPUSCULAR VOLUME 88.4 fL (81.0-99.0); MEAN PLATELET VOLUME 9.3 fL (7.9-10.8); MONOCYTES # (AUTO) 1.4 10^3/uL (0.0-1.0); MONOCYTES % (AUTO) 7.8 %; NEUTROPHILS # (AUTO) 14.6 10^3/uL (1.5-6.6); NEUTROPHILS % (AUTO) 82.2 %; PLT - PLATELET COUNT 326 10^3/uL (130-450); RED BLOOD COUNT 4.39 10^6/uL (4.20-5.40); RED CELL DISTRIBUTION WIDTH 15.3 % (12.0-15.0); WHITE BLOOD COUNT 17.7 x10^3/uL (4.8-10.8)
--- NOTE | 2018-12-14 14:04 | XRAY Report ---
Reason: palpitations Procedure Date: 12/14/2018 Accession Number: [id number] / [id number] Procedure: XR - Chest 1 View X-Ray CPT Code: 31620 FULL RESULT: EXAM: CHEST RADIOGRAPHY EXAM DATE: 12/14/2018 01:29 PM. CLINICAL HISTORY: Palpitations. COMPARISON: CHEST 2 VIEW 10/21/2017 5:09 PM. TECHNIQUE: 1 view. FINDINGS: Lungs/Pleura: No focal opacities evident. No pleural effusion. No pneumothorax. Mediastinum: Borderline cardiomegaly. There is a moderate sized hiatal hernia. Other: None. IMPRESSION: No acute intrathoracic plain film abnormality. RADIA
[2018-12-14 14:18] LABS: ALBUMIN 4.1 g/dL (3.2-5.5); ALBUMIN/GLOBULIN RATIO 1.4 (1.0-2.2); BILIRUBIN,TOTAL 0.6 mg/dL (0.2-1.0); CALCIUM 9.7 mg/dL (8.5-10.3); CREATININE 0.7 mg/dL (0.4-1.0); MAGNESIUM 2.2 mg/dL (1.7-2.8); PHOSPHORUS 3.7 mg/dL (2.5-4.6); TOTAL PROTEIN 7.1 g/dL (6.7-8.2)
--- NOTE | 2018-12-14 14:25 | ED Physician Documentation ---
History of Present Illness - Stated complaint Stated Complaint: SOA/RACING HEART - Chief complaint Chief Complaint: Cardiac - History obtained from History obtained from: Patient - History of Present Illness Timing: Today Pain level max: 0 Pain level now: 0 - Additonal information Additional information: 77-year-old female presents to the emergency department complaining of heart palpitations. These last for approximately 15 to 20 seconds at a time. Does have a history of atrial fibrillation. States that these are occurring more frequently than usual. Nothing makes it better or worse. No chest pain. Mild dyspnea occasionally. 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 Fontanez in [place]. Review of Systems Constitutional: denies: Fever, Chills Throat: denies: Sore throat Cardiac: reports: Palpitations. denies: Chest pain / pressure Respiratory: denies: Cough, Wheezing Skin: denies: Rash Musculoskeletal: denies: Neck pain, Back pain Neurologic: denies: Headache PD PAST MEDICAL HISTORY - Past Medical History Cardiovascular: Atrial fibrillation Respiratory: None, Pneumonia Endocrine/Autoimmune: None GI: None WOODS RIDER: None : Kidney stones HEENT: None Psych: None Musculoskeletal: Other Derm: Psoriasis - Past Surgical History Past Surgical History: Yes General: Cholecystectomy, Appendectomy, Colonoscopy Ortho: Other /WOODS RIDER: Dilation and currettage, Hysterectomy HEENT: Cataracts - Present Medications Home Medications: Ambulatory Orders Medication Instructions Recorded Confirmed Aspirin [Aspir 81] 81 mg PO DAILY 11/08/12 12/14/18 Hydrochlorothiazide 25 mg PO DAILY 11/08/12 12/14/18 Multivitamin [Multi-Vitamin Daily] 1 each PO DAILY 11/08/12 12/14/18 [place]-3/Dha/Epa/Fish Oil [Fish Oil 2 each PO DAILY 11/08/12 12/14/18 1,000 mg Softgel] Pantoprazole Sodium [Protonix] 40 mg PO BID 11/08/12 12/14/18 Vit C/Ascorbate Ca/Ascorb Sod 500 mg PO DAILY 11/08/12 12/14/18 [Vitamin C 500 mg/15 ml Liquid] traMADol [Ultram] 50 mg PO Q6H PRN 11/08/12 12/14/18 Celecoxib [CeleBREX] 200 mg PO BID 05/27/13 12/14/18 Estrogens, Conjugated [Premarin] 0.3 mg PO 05/27/13 01/25/15 diltiaZEM CD [Cardizem Cd] 300 mg PO DAILY 05/27/13 12/14/18 Calcium Carb/D3/Magnesium/Zinc 1 tab PO DAILY 01/24/15 12/29/15 [Tate Mag Zinc + D Tablet] Cholecalciferol (Vitamin D3) 2,000 unit PO DAILY 01/24/15 12/14/18 [Vitamin D-3] Vitamin B Complex [B Complex] 1 tab PO DAILY 01/24/15 12/29/15 Cyclosporine [Restasis] 1 applic OP BID 12/29/15 12/29/15 Etanercept [Enbrel] 50 mg SQ OAW 12/29/15 12/14/18 Gabapentin 300 mg ORAL DAILY 12/29/15 12/14/18 Lidocaine 1 patch TOP DAILY 12/29/15 12/29/15 Magnesium Oxide [Magnesium] 400 mg PO DAILY 12/29/15 12/14/18 Prednisone 4 mg ORAL DAILY 12/29/15 12/14/18 Solifenacin Succinate [Vesicare] 1 tab ORAL DAILY 12/29/15 12/29/15 HYDROcod/ACETAM 5/325 [[place] 5/325] 1 - 2 ea PO Q6H PRN #15 tablet 10/10/17 12/14/18 Cephalexin [Keflex] 500 mg PO Q6H #20 capsule 12/14/18 Cyclobenzaprine [Flexeril] 5 mg PO PRN PRN 12/14/18 12/14/18 Diltiazem HCl [Cardizem Cd] 360 mg PO DAILY #30 cap.er.24h 12/14/18 Mirabegron [Myrbetriq] 50 mg PO DAILY PM 12/14/18 12/14/18 Potassium Chloride 10 meq PO DAILY 12/14/18 12/14/18 Potassium Chloride 20 meq PO DAILY PM 12/14/18 12/14/18 - Allergies Allergies/Adverse Reactions: Allergies Allergy/AdvReac Type Severity Reaction Status Date / Time leflunomide AdvReac Emesis Verified 12/14/18 13:39 methotrexate AdvReac Unknown Verified 12/14/18 13:39 milk AdvReac Cramps Verified 12/14/18 13:39 mushroom AdvReac Nausea Verified 12/14/18 13:39 - Social History Does the pt smoke?: Yes Smoking Status: Current every day smoker Does the pt drink ETOH?: Yes Does the pt have substance abuse?: No - Immunizations Immunizations are current?: Yes - POLST Patient has POLST: No PD ED PE NORMAL - Vitals Vital signs reviewed: Yes - General General: Alert and oriented X 3, No acute distress, Well developed/nourished - HEENT HEENT: PERRL, Moist mucous membranes - Neck Neck: Supple, no meningeal sign - Cardiac Cardiac: RRR, Strong equal pulses - Respiratory Respiratory: No respiratory distress, Clear bilaterally - Abdomen Abdomen: Soft, Non tender, Non distended - Derm Derm: Warm and dry - Extremities Extremities: No edema, No calf tenderness / cord - Neuro Neuro: Alert and oriented X 3 - Psych Psych: Normal mood, Normal affect Results - Vitals Vitals: Oxygen O2 Source Room air - EKG (time done) 1248 Rate: Rate (enter#) (92) Rhythm: Other (sinus arrhythmia) [place]: Normal Intervals: Normal [place] QRS: Normal Ischemia: Normal ST segments 1251 Rate: Rate (enter#) (145) Rhythm: Atrial flutter (with variable block) [place]: Normal QRS: Normal Ischemia: Normal ST segments - Labs Labs: Laboratory Tests 12/14/18 12/14/18 13:55 13:55 WBC 17.7 H RBC 4.39 Hgb 12.4 Hct 38.8 MCV 88.4 MCH 28.2 MCHC 32.0 RDW 15.3 H Plt Count 326 MPV 9.3 Neut # (Auto) 14.6 H Lymph # (Auto) 1.5 [place] # (Auto) 1.4 H Eos # (Auto) 0.1 Baso # (Auto) 0.1 Absolute Nucleated RBC 0.00 Nucleated RBC % 0.0 Sodium 144 Potassium 4.0 Chloride 106 Carbon Dioxide 23 Anion Gap 15.0 H BUN 27 H Creatinine 0.7 Estimated GFR (MDRD) 81 L Glucose 102 H Calcium 9.7 Phosphorus 3.7 Magnesium 2.2 Total Bilirubin 0.6 AST 18 ALT 20 Alkaline Phosphatase 70 Total Protein 7.1 Albumin 4.1 Globulin 3.0 Albumin/Globulin Ratio 1.4 Lipase 38 - Rads (name of study) cxr Radiology: Prelim report reviewed, EMP read contemporaneously, See rad report (No acute disease) PD MEDICAL DECISION MAKING - ED course Complexity details: reviewed results, re-evaluated patient, considered differential, d/w patient, d/w lead consultant ED course: Patient appears to be having runs of atrial flutter with variable block. She is currently on Cardizem 300 mg p.o. daily. Discussed the case with her shell mold bonding machine operator who recommends increasing this to 360 mg p.o. daily. Given an extra 60 mg dose here and symptoms resolved. No significant electrolyte abnormalities. Patient counseled regarding signs and symptoms for which I believe and urgent re-evaluation would be necessary. Patient with good understanding of and agreement to plan and is comfortable going home at this time This document was made in part using voice recognition software. While efforts are made to proofread this document, sound alike and grammatical errors may occur. Patient was also diagnosed with the UTI by her doctor but not placed on antibiotics. She has a white count of 17,[address] will [address] her on antibiotics. Departure - Departure Disposition: 01 Home, Self Care Clinical Impression: Atrial flutter Qualifiers: Atrial flutter type: unspecified Qualified Code(s): I48.92 - Unspecified atrial flutter UTI (urinary tract infection) Qualifiers: Urinary tract infection type: site unspecified Hematuria presence: without hematuria Qualified Code(s): N39.0 - Urinary tract infection, site not specified Condition: Good Instructions: ED Paroxysmal Atrial Flutter, ED UTI Cystitis Female Follow-Up: Terry Austin MD [Primary Care Provider] - Madeleine Fontanez MD [Provider Admit Priv/Credential] - Within 1 week Prescriptions: Cephalexin [Keflex] 500 mg PO Q6H #20 capsule Diltiazem HCl [Cardizem Cd] 360 mg PO DAILY #30 cap.er.24h Comments: Return if you worsen. Continue your antibiotics at home. Increase your cardizem to 360mg by mouth daily. I spoke with Dr. Fontanez today. Take all antibiotics until gone. Return if you worsen. You should also discuss with your doctor being placed on an anticoagulant such as xarelto for your atrial flutter. Discharge Date/Time: 12/14/18 14:50
[2018-12-14] MEDS ORDERED: cefTRIAXone 1 GM VIAL IVP STA (14:29)
[2018-12-14 14:32] VITALS: BP 155/86
== END 2018-12-14 14:50 | disposition home or self-care (01) ==
LOC: ED 12:35
DX: I48.92 Unspecified atrial flutter (principal); N39.0 Urinary tract infection, site not specified; F17.200 Nicotine dependence, unspecified, uncomplicated
CPT/HCPCS: 36415; 71045; 80053; 83690; 83735; 84100; 85025; 93005; 96374; 99284; A9270; 84484

== ENCOUNTER 2019-01-10 16:26 | Emergency (ER) | payer MEDICARE, OTHER ==
--- NOTE | 2019-01-10 16:33 | ED Physician Documentation ---
PD HPI DYSPNEA - Stated complaint Stated Complaint: SOA/BEE STING - Chief complaint Chief Complaint: Allergic Rx - History obtained from History obtained from: Patient - History of Present Illness Timing - onset: How many minutes ago (20-30), Today Timing - onset during: Other (she was eating raspberries and did not notice a bee on it, so put it in her mouth. It stung her in the underside of the tongue. Her tongue started swelling promptly and has continued to swell more. She does have some general itching as well. No dyspnea per se. No lightheaded. Main discomfort is the amount of tongue swelling and feeling that it is about to fill her whole mouth/throat.) Timing - details: Abrupt onset Inciting event(s): Other (bee sting underside of the tongue) Associated symptoms: No: Fever, Cough, Wheezing Similar symptoms before: Has not had sx before Review of Systems Constitutional: denies: Fever, Chills Nose: denies: Rhinorrhea / runny nose, Congestion Throat: denies: Sore throat Cardiac: denies: Chest pain / pressure Respiratory: reports: Dyspnea. denies: Cough GI: denies: Nausea, Vomiting PD PAST MEDICAL HISTORY - Past Medical History Cardiovascular: Atrial fibrillation Respiratory: None, Pneumonia Endocrine/Autoimmune: None GI: None MANAGER OF ENGINEERING: None : Kidney stones HEENT: None Psych: None Musculoskeletal: Other Derm: Psoriasis - Past Surgical History Past Surgical History: Yes General: Cholecystectomy, Appendectomy, Colonoscopy Ortho: Other /MANAGER OF ENGINEERING: Dilation and currettage, Hysterectomy - Present Medications Home Medications: Ambulatory Orders Medication Instructions Recorded Confirmed Aspirin [Aspir 81] 81 mg PO DAILY 11/08/12 12/14/18 Hydrochlorothiazide 25 mg PO DAILY 11/08/12 12/14/18 Multivitamin [Multi-Vitamin Daily] 1 each PO DAILY 11/08/12 12/14/18 [place]-3/Dha/Epa/Fish Oil [Fish Oil 2 each PO DAILY 11/08/12 12/14/18 1,000 mg Softgel] Pantoprazole Sodium [Protonix] 40 mg PO BID 11/08/12 12/14/18 Vit C/Ascorbate Ca/Ascorb Sod 500 mg PO DAILY 11/08/12 12/14/18 [Vitamin C 500 mg/15 ml Liquid] traMADol [Ultram] 50 mg PO Q6H PRN 11/08/12 12/14/18 Celecoxib [CeleBREX] 200 mg PO BID 05/27/13 12/14/18 Estrogens, Conjugated [Premarin] 0.3 mg PO 05/27/13 01/25/15 diltiaZEM CD [Cardizem Cd] 300 mg PO DAILY 05/27/13 12/14/18 Calcium Carb/D3/Magnesium/Zinc 1 tab PO DAILY 01/24/15 12/29/15 [Tate Mag Zinc + D Tablet] Cholecalciferol (Vitamin D3) 2,000 unit PO DAILY 01/24/15 12/14/18 [Vitamin D-3] Vitamin B Complex [B Complex] 1 tab PO DAILY 01/24/15 12/29/15 Cyclosporine [Restasis] 1 applic OP BID 12/29/15 12/29/15 Etanercept [Enbrel] 50 mg SQ OAW 12/29/15 12/14/18 Gabapentin 300 mg ORAL DAILY 12/29/15 12/14/18 Lidocaine 1 patch TOP DAILY 12/29/15 12/29/15 Magnesium Oxide [Magnesium] 400 mg PO DAILY 12/29/15 12/14/18 Prednisone 4 mg ORAL DAILY 12/29/15 12/14/18 Solifenacin Succinate [Vesicare] 1 tab ORAL DAILY 12/29/15 12/29/15 HYDROcod/ACETAM 5/325 [[place] 5/325] 1 - 2 ea PO Q6H PRN #15 tablet 10/10/17 12/14/18 Cephalexin [Keflex] 500 mg PO Q6H #20 capsule 12/14/18 Cyclobenzaprine [Flexeril] 5 mg PO PRN PRN 12/14/18 12/14/18 Diltiazem HCl [Cardizem Cd] 360 mg PO DAILY #30 cap.er.24h 12/14/18 Mirabegron [Myrbetriq] 50 mg PO DAILY PM 12/14/18 12/14/18 Potassium Chloride 10 meq PO DAILY 12/14/18 12/14/18 Potassium Chloride 20 meq PO DAILY PM 12/14/18 12/14/18 EPINEPHrine [Epinephrine] 0.3 mg IJ ONCE PRN #1 auto.injct 01/10/19 - Allergies Allergies/Adverse Reactions: Allergies Allergy/AdvReac Type Severity Reaction Status Date / Time leflunomide AdvReac Emesis Verified 01/10/19 16:31 methotrexate AdvReac Unknown Verified 01/10/19 16:31 milk AdvReac Cramps Verified 01/10/19 16:31 mushroom AdvReac Nausea Verified 01/10/19 16:31 - Social History Does the pt smoke?: Yes Smoking Status: Current every day smoker Does the pt drink ETOH?: Yes Does the pt have substance abuse?: No - Immunizations Immunizations are current?: Yes - POLST Patient has POLST: No PD ED PE NORMAL - Vitals Vital signs reviewed: Yes - General General: Alert and oriented X 3, Well developed/nourished - HEENT HEENT: Other (tongue with marked edema, partly sticking out of her mouth. Garbled speech. Neck supple. ) - Neck Neck: Supple, no meningeal sign, No adenopathy - Cardiac Cardiac: RRR, No murmur - Respiratory Respiratory: Clear bilaterally - Abdomen Abdomen: Soft, Non tender - Derm Derm: Normal color, Warm and dry, Other (mild general small hives without vesicles. ) - Neuro Neuro: Alert and oriented X 3, No motor deficit, Normal speech Results - Vitals Vitals: Vital Signs - 24 hr 01/10/19 01/10/19 01/10/19 16:29 18:27 19:17 Temperature 36.4 C L 37.2 C Heart Rate 94 71 78 Respiratory 19 18 20 Rate Blood Pressure 152/89 H 149/71 H 142/75 H O2 Saturation 99 98 98 Oxygen O2 Source Room air PD MEDICAL DECISION MAKING - ED course Complexity details: re-evaluated patient (improved with epi, cool mist, benadryl, decadron. ), considered differential (steady improvement after meds. Watched couple hours and no resurgence of swelling, though not fully resolved (and was getting some swelling submandibular, but tongue much improved). ), d/w patient Departure - Departure Disposition: 01 Home, Self Care Clinical Impression: Allergic reaction to bee sting, Tongue swelling Condition: Stable Record reviewed to determine appropriate education?: Yes Instructions: ED Bite Sting Insect Gen Allergic React Prescriptions: EPINEPHrine [Epinephrine] 0.3 mg IJ ONCE PRN #1 auto.injct PRN Reason: Anaphylaxis Comments: Use some Benadryl 25 to 50 mg every 6 hours for the next day or 2. Increase your prednisone at home to 10 mg daily for the next 3 days and then resume your normal 4 mg dose. Your symptoms seem to be downward trending still and I presum e will continue so overnight into tomorrow. Return if increasing swelling again or other concerns. This may take 2 to 3 days to completely resolve but as long as it continues on the downward trend. The swelling of the tongue makes sense given that you are stung there. However he did have some general itching as well that suggests a general allergic reaction. As such, it may make sense to carry with you and be kit for self injection so you can self administer medication in case you have a similar reaction to future bee sting. Future stings may not have the same type of reaction if they are not in the central location like your mouth. Discharge Date/Time: 01/10/19 19:19
[2019-01-10] MEDS ORDERED: SODIUM CHLORIDE 0.9% 1,000 ML IV ONE (16:40)
[2019-01-10] MEDS ORDERED: DEXAMETHASONE 10 MG/ML VIAL IVP STA (16:41)
[2019-01-10] MEDS ORDERED: EPINEPHrine 1 MG/ML AMP IM STA (16:41)
[2019-01-10] MEDS ORDERED: diphenhydrAMINE INJ 50 MG/ML VIAL IVP STA (16:41)
[2019-01-10] MEDS ORDERED: diltiaZEM INJ 5 MG/ML VIAL IVP STA (16:42)
[2019-01-10 19:19] VITALS: BP 142/75
== END 2019-01-10 19:19 | disposition home or self-care (01) ==
LOC: ED 16:26
DX: T63.441A Toxic effect of venom of bees, accidental (unintentional), initial encounter (principal); X58.XXXA Exposure to other specified factors, initial encounter; R22.0 Localized swelling, mass and lump, head; L50.9 Urticaria, unspecified; F17.200 Nicotine dependence, unspecified, uncomplicated; Z79.82 Long term (current) use of aspirin
CPT/HCPCS: 94644; 94645; 96361; 96372; 96374; 96375; 99283; 99284; J1200

== ENCOUNTER 2019-01-15 12:44 | Outpatient (CLI) | payer MEDICARE, OTHER | END 2019-01-15 12:45 | disposition home or self-care (01) | LOC: LAB 12:44 | PROVIDERS: ATTEND Internal Medicine Cardiovascular Disease | DX: R25.2 Cramp and spasm (principal) | CPT/HCPCS: 36415; 83735 ==

== ENCOUNTER 2019-01-27 12:29 | Outpatient (CLI) | payer MEDICARE, OTHER | END 2019-01-27 12:30 | disposition home or self-care (01) | LOC: DI 12:29 | PROVIDERS: ATTEND Internal Medicine Cardiovascular Disease | DX: I48.0 Paroxysmal atrial fibrillation (principal); I34.0 Nonrheumatic mitral (valve) insufficiency | CPT/HCPCS: 93306 ==

== ENCOUNTER 2019-02-01 12:47 | Outpatient (CLI) | payer MEDICARE, OTHER ==
[2019-02-01 13:32] LABS: % IRON SATURATION 4 % (20-50); IRON 18 ug/dL (28-170); TOTAL IRON BINDING CAPACITY 505 ug/dL (250-450); TRANSFERRIN 361 mg/dL (192-382)
== END 2019-02-01 12:48 | disposition home or self-care (01) ==
LOC: LAB 12:47
PROVIDERS: ATTEND Nurse Practitioner
DX: D64.9 Anemia, unspecified (principal); R53.83 Other fatigue
CPT/HCPCS: 36415; 82728; 83540; 84466

== ENCOUNTER 2019-03-17 11:58 | Outpatient (CLI) | payer MEDICARE, OTHER ==
[2019-03-17 12:11] LABS: HGB - HEMOGLOBIN 13.5 g/dL (12.0-16.0); MEAN CORPUSCULAR HEMOGLOBIN 29.7 pg (27.0-31.0); MEAN CORPUSCULAR HGB CONC 31.9 g/dL (32.0-36.0); MEAN CORPUSCULAR VOLUME 93.2 fL (81.0-99.0); MEAN PLATELET VOLUME 9.9 fL (7.9-10.8); RED BLOOD COUNT 4.54 10^6/uL (4.20-5.40); RED CELL DISTRIBUTION WIDTH 18.6 % (12.0-15.0); WHITE BLOOD COUNT 10.5 x10^3/uL (4.8-10.8)
[2019-03-17 12:34] LABS: % IRON SATURATION 24 % (20-50); IRON 85 ug/dL (28-170); TOTAL IRON BINDING CAPACITY 358 ug/dL (250-450); TRANSFERRIN 256 mg/dL (192-382)
== END 2019-03-17 11:59 | disposition home or self-care (01) ==
LOC: LAB 11:58
PROVIDERS: ATTEND Nurse Practitioner
DX: D64.9 Anemia, unspecified (principal)
CPT/HCPCS: 36415; 82728; 83540; 84466; 85027

== ENCOUNTER 2019-06-24 09:55 | Outpatient (CLI) | payer MEDICARE, OTHER ==
--- NOTE | 2019-06-29 09:36 | Mammography Report ---
Reason: ROUTINE MAMMO Procedure Date: 06/24/2019 Accession Number: [id number] / [id number] Procedure: DEMETRICE - Screening Mammo w/Sarthak CPT Code: Final Report FULL RESULT: EXAM: Screening Mammo w/Sarthak DATE: 06/24/2019 10:29 AM CLINICAL HISTORY: Screening encounter. History of nulliparity. History of benign right breast biopsy. TECHNIQUE: (B) - Bilateral CC and MLO views were obtained. Right laterally exaggerated cc view is obtained. COMPARISON: 05/28/2016 through 04/06/2010. PARENCHYMAL PATTERN: (A) - The breast(s) demonstrate(s) scattered fibroglandular densities. FINDINGS: There are coarse typically benign calcifications. There are no suspicious masses, calcifications, or areas of distortion. IMPRESSION: Benign findings. BI-RADS category 2. RECOMMENDATION: (ANNUAL) - Recommend routine annual screening mammography. BI-RADS CATEGORY: (2) - Benign Findings. STANDARD QUALIFYING STATEMENTS: 1. This examination was not reviewed with the aid of Computer-Aided Detection (CAD). 2. A negative or benign imaging report should not preclude biopsy if clinically suspicious findings are present. 3. Dense breasts may obscure an underlying neoplasm. 4. This examination was reviewed with the aid of 3D breast imaging (tomosynthesis).
== END 2019-06-24 09:56 | disposition home or self-care (01) ==
LOC: DI 09:55
DX: Z12.31 Encounter for screening mammogram for malignant neoplasm of breast (principal)
CPT/HCPCS: 77063; 77067

== ENCOUNTER 2019-06-25 08:00 | Outpatient (CLI) | payer MEDICARE, OTHER | END 2019-06-25 23:59 | disposition home or self-care (01) | LOC: LAB.R 08:00 | PROVIDERS: ATTEND Nurse Practitioner | DX: R30.0 Dysuria (principal) | CPT/HCPCS: 87086 ==

== ENCOUNTER 2019-08-19 09:24 | Outpatient (CLI) | payer MEDICARE, OTHER ==
--- NOTE | 2019-08-20 10:38 | MRI Report ---
Reason: LT HIP JOINT PAIN Procedure Date: 08/19/2019 Accession Number: [id number] / [id number] Procedure: MRI - Pelvis W/O CPT Code: Final Report FULL RESULT: EXAM: MRI PELVIS WITHOUT CONTRAST EXAM DATE: 08/19/2019 10:23 AM. CLINICAL HISTORY: Left hip joint pain. 2 falls in June. Left buttock pain traveling anteriorly around the left hip joint. COMPARISON: 08/11/2017 MRI, CT 09/04/2017. TECHNIQUE: Multiplanar, multisequence T1-weighted and fluid-sensitive sequences of the pelvis without contrast. Other: None. FINDINGS: Bones: No fractures. Reactive periarticular marrow edema surrounds the left hip joint. Lower Lumbar Spine: Fusion procedure has been performed in the lower lumbar spine. Sacroiliac Joints: No effusion or sacroiliitis. Right Hip: No acetabular retroversion. Femoral head-neck offset is within normal limits. No effusion. Left Hip: There is moderate to severe cartilage loss at the left hip joint. Full-thickness tear of the anterosuperior labrum at 2 o'clock position is seen on series 801, image 17). Symphysis Pubis: Mild osteophyte formation is present. Musculature: The patient has a chronic partial tear of the left hamstring tendon origin. Pelvic Cavity: The visualized bowel, bladder, and reproductive organs are unremarkable. No lymphadenopathy. No free fluid in the pelvis. Other: The visualized sciatic nerves are unremarkable. No bursitis. The subcutaneous tissues are unremarkable. IMPRESSION: 1. Arthritis of the left hip joint, potentially inflammatory. 2. Full-thickness tear of the anterosuperior left labrum. RADIA
== END 2019-08-19 09:25 | disposition home or self-care (01) ==
LOC: DI 09:24
PROVIDERS: ATTEND Nurse Practitioner
DX: M16.12 Unilateral primary osteoarthritis, left hip (principal); S73.192A Other sprain of left hip, initial encounter; M35.3 Polymyalgia rheumatica; Z79.899 Other long term (current) drug therapy; Z91.81 History of falling
CPT/HCPCS: 36415; 72195; 80053; 85651; 86140

== ENCOUNTER 2019-08-19 10:31 | Outpatient (CLI) | payer MEDICARE, OTHER ==
[2019-08-19 11:08] LABS: ALBUMIN 3.9 g/dL (3.2-5.5); ALBUMIN/GLOBULIN RATIO 1.1 (1.0-2.2); BILIRUBIN,TOTAL 0.3 mg/dL (0.2-1.0); CALCIUM 9.4 mg/dL (8.5-10.3); CREATININE 0.9 mg/dL (0.4-1.0); CRP - C-REACTIVE PROTEIN 1.7 mg/dL (0-1.0); TOTAL PROTEIN 7.3 g/dL (6.7-8.2)
== END 2019-08-19 10:32 | disposition home or self-care (01) ==
LOC: LAB 10:31
PROVIDERS: ATTEND Nurse Practitioner
DX: M35.3 Polymyalgia rheumatica (principal); Z91.81 History of falling; Z79.899 Other long term (current) drug therapy
CPT/HCPCS: 36415; 80053; 85651; 86140

== ENCOUNTER 2020-01-05 13:03 | Outpatient (CLI) | payer MEDICARE, OTHER ==
--- NOTE | 2020-01-05 16:17 | DEXA Report ---
PROCEDURE: Dexa Spine and/or Hip INDICATIONS: BONE DISORDER TECHNIQUE: Dual energy x-ray absorptiometry (DXA) was performed on a flikdate System. Regions measur ed are the AP Spine, femoral neck, and if needed forearm. COMPARISON: 12/10/2016. FINDINGS: Lumbar Spine: Bone Mineral Density 1.360 g/cm/cm,T score 1.6, normal Left Hip: Bone Mineral Density 0.748 g/cm/cm,T score -2.1, osteopenia Left Femoral Neck: Bone Mineral Density 0.802 g/cm/cm, T score -1.7, osteopenia (T score greater or equal to -1.0: NORMAL) (T score from -1.1 to -2.4: OSTEOPENIA) (T score less than or equal to -2.5 to: OSTEOPOROSIS) Impression: Osteopenia. Patients with diagnosis of osteoporosis or osteopenia should have regular bone mineral density assess ment. For those eligible for Medicare, routine testing is allowed once every 2 years. Testing frequ ency can be increased for patients who have rapidly progressing disease or for those who are receivin g medical therapy to restore bone mass. Reviewed by: Alejandra Godoy MD, PhD on 01/05/2020 4:16 PM PDT Approved by: Alejandra Godoy MD, PhD on 01/05/2020 4:16 PM PDT Station ID: [id number]
== END 2020-01-05 13:04 | disposition home or self-care (01) ==
LOC: DI 13:03
PROVIDERS: ATTEND Internal Medicine Rheumatology
DX: M85.89 Other specified disorders of bone density and structure, multiple sites (principal)
CPT/HCPCS: 77080; 77081

== ENCOUNTER 2020-04-20 10:58 | Outpatient (CLI) | payer MEDICARE, OTHER | END 2020-04-20 10:59 | disposition home or self-care (01) | LOC: LAB 10:58 | PROVIDERS: ATTEND Internal Medicine | DX: Z79.01 Long term (current) use of anticoagulants (principal) | CPT/HCPCS: 85610 ==

== ENCOUNTER 2020-04-24 11:04 | Outpatient (CLI) | payer MEDICARE, OTHER | END 2020-04-24 11:05 | disposition home or self-care (01) | LOC: LAB 11:04 | PROVIDERS: ATTEND Internal Medicine | DX: Z79.01 Long term (current) use of anticoagulants (principal) | CPT/HCPCS: 85610 ==

== ENCOUNTER 2020-04-27 11:00 | Outpatient (CLI) | payer MEDICARE, OTHER | END 2020-04-27 11:01 | disposition home or self-care (01) | LOC: LAB 11:00 | PROVIDERS: ATTEND Internal Medicine | DX: Z79.01 Long term (current) use of anticoagulants (principal) | CPT/HCPCS: 85610 ==

== ENCOUNTER 2020-05-01 11:22 | Outpatient (CLI) | payer MEDICARE, OTHER | END 2020-05-01 11:23 | disposition home or self-care (01) | LOC: LAB 11:22 | PROVIDERS: ATTEND Internal Medicine | DX: Z79.01 Long term (current) use of anticoagulants (principal) | CPT/HCPCS: 36415; 85610 ==

== ENCOUNTER 2020-05-08 10:06 | Outpatient (CLI) | payer MEDICARE, OTHER | END 2020-05-08 10:07 | disposition home or self-care (01) | LOC: LAB 10:06 | PROVIDERS: ATTEND Internal Medicine | DX: Z79.01 Long term (current) use of anticoagulants (principal) | CPT/HCPCS: 85610 ==

== ENCOUNTER 2020-05-22 10:52 | Outpatient (CLI) | payer MEDICARE, OTHER | END 2020-05-22 10:53 | disposition home or self-care (01) | LOC: LAB 10:52 | PROVIDERS: ATTEND Internal Medicine | DX: Z79.01 Long term (current) use of anticoagulants (principal) | CPT/HCPCS: 85610 ==

== ENCOUNTER 2021-01-14 18:51 | Emergency (ER) | payer MEDICARE, OTHER ==
[2021-01-14] MEDS ORDERED: LIDOCAINE-EPINEPH-TETRACAINE 3 ML SYRINGE TOP STA (19:17)
[2021-01-14] MEDS ORDERED: TETANUS/DIPHTHERIA/PERTUSSIS 0.5 ML SYRINGE IM ONE (19:18)
--- NOTE | 2021-01-14 19:27 | ED Physician Documentation ---
PD HPI HEAD INJURY - Stated complaint Stated Complaint: GLF/HEAD LAC - Chief complaint Chief Complaint: Trauma Hd/Nk - History obtained from History obtained from: Patient - History of Present Illness Mechanism of head injury: Fell Where head injury occurred: Home Timing - onset: Today Pain level max: 7 Pain level now: 5 Quality of pain: Pain, Aching, Dull Associated symptoms: No: LOC, AMS, Amnesia, Nausea / vomiting, Neck pain, Paresthesias Symptoms improve with: Rest Symptoms worsen with: Palpation, Movement Contributing factors: No: Anticoagulated, Intoxicated - Additional information Additional information: Patient is a 80-year-old female who presents to the emergency department stating that she tripped and fell at home landing on the left side of her head on the concrete floor. Has a laceration to the left side of the forehead. Does not take blood thinners. No loss of consciousness. Worse with movement, better with rest. Also complains of pain to the left hip and to the right wrist. She is able to walk. Ambulated into the emergency department with no assistive devices. Review of Systems Constitutional: denies: Fever, Chills Respiratory: denies: Cough GI: denies: Vomiting, Diarrhea Skin: denies: Rash Musculoskeletal: denies: Neck pain, Back pain Neurologic: denies: Headache PD PAST MEDICAL HISTORY - Past Medical History Cardiovascular: Atrial fibrillation Respiratory: None, Pneumonia Neuro: Peripheral neuropathy Endocrine/Autoimmune: Other GI: None SSIS ARCHITECT: None : Kidney stones HEENT: None Psych: None Musculoskeletal: Osteoarthritis Derm: Psoriasis - Past Surgical History Past Surgical History: Yes General: Cholecystectomy, Appendectomy, Colonoscopy Ortho: Other /SSIS ARCHITECT: Dilation and currettage, Hysterectomy - Present Medications Home Medications: Ambulatory Orders Medication Instructions Recorded Confirmed Aspirin [Aspir 81] 81 mg PO DAILY 11/08/12 01/21/20 Hydrochlorothiazide 25 mg PO DAILY 11/08/12 01/21/20 Multivitamin [Multi-Vitamin Daily] 1 each PO DAILY 11/08/12 01/21/20 [place]-3/Dha/Epa/Fish Oil [Fish Oil 2 each PO DAILY 11/08/12 01/21/20 1,000 mg Softgel] Pantoprazole Sodium [Protonix] 40 mg PO BID 11/08/12 01/21/20 traMADol [Ultram] 50 mg PO Q6H PRN 11/08/12 01/21/20 Celecoxib [CeleBREX] 200 mg PO BID 05/27/13 01/21/20 Cholecalciferol (Vitamin D3) 2,000 unit PO DAILY 01/24/15 01/21/20 [Vitamin D-3] Vitamin B Complex [B Complex] 1 tab PO DAILY 01/24/15 01/21/20 predniSONE [Prednisone] 3 - 4 mg ORAL DAILY 12/29/15 01/21/20 Potassium Chloride 10 meq PO DAILY 12/14/18 01/21/20 Ascorbic Acid [Vitamin C] 1 tab PO DAILY 01/21/20 01/21/20 Calcium Citrate 800 unit PO BID 01/21/20 01/21/20 Diltiazem HCl [Cardizem Cd] 300 mg PO DAILY 01/21/20 01/21/20 Ferrous Sulfate 325 mg PO DAILY 01/21/20 01/21/20 HYDROcodone/ACET 10/325 [[place] 10 1 - 2 tab PO DAILY PRN 01/21/20 01/21/20 mg/325 mg] Magnesium Glycinate [Magnesium 500 mg PO TID 01/21/20 01/21/20 Bisglycinate Chelate] Melatonin 5 mg PO DAILY 01/21/20 01/21/20 Pregabalin 75 mg PO BID 01/21/20 01/21/20 Tizanidine HCl 1 tab PO DAILY 01/21/20 01/21/20 - Allergies Allergies/Adverse Reactions: Allergies Allergy/AdvReac Type Severity Reaction Status Date / Time leflunomide AdvReac Emesis Verified 01/14/21 19:00 methotrexate AdvReac Unknown Verified 01/14/21 19:00 milk AdvReac Cramps Verified 01/14/21 19:00 mushroom AdvReac Nausea Verified 01/14/21 19:00 - Social History Does the pt smoke?: Yes Smoking Status: Former smoker Does the pt drink ETOH?: Yes Does the pt have substance abuse?: No - Immunizations Immunizations are current?: Yes - POLST Patient has POLST: No PD ED PE NORMAL - Vitals Vital signs reviewed: Yes - General General: Alert and oriented X 3, No acute distress - HEENT HEENT: PERRL, EOMI, Moist mucous membranes, Other (2 cm laceration to the left forehead. Into the subcutaneous fat. No palpable skull fractures. Otherwise atraumatic facial and head exam) - Neck Neck: Supple, no meningeal sign, Other (Mild tenderness to palpation, patient states consistent with her normal arthritis) - Cardiac Cardiac: RRR, Strong equal pulses - Respiratory Respiratory: No respiratory distress, Clear bilaterally - Abdomen Abdomen: Soft, Non tender, Non distended - Back Back: No spinal TTP - Derm Derm: Warm and dry - Extremities Extremities: Other (Mild ecchymosis to the right wrist, tender palpation over the dorsum of the wrist. No snuffbox tenderness. No deformity. Neurovascular intact. There is also mild ecchymosis to the left wrist. No pain or tenderness with movement or palpation. No snuffbox tenderness. Neurovascular intact) - Neuro Neuro: Alert and oriented X 3 - Psych Psych: Normal mood, Normal affect - Free text exam Free text exam: Patient also with mild tenderness over the left greater trochanter. No ecchymosis or swelling. Full range of motion present. Able to fully bear weight on the leg. Results - Vitals Vitals: Vital Signs - 24 hr 01/14/21 01/14/21 18:54 20:38 Temperature 36.9 C Heart Rate 78 80 Respiratory 18 18 Rate Blood Pressure 139/79 H 153/80 H O2 Saturation 97 100 Oxygen O2 Source Room air - Rads (name of study) head Ct Radiology: Final report received, EMP read contemporaneously, See rad report cervical spine CT Radiology: Final report received, EMP read contemporaneously, See rad report R wrist xray Radiology: Final report received, EMP read contemporaneously, See rad report L hip xray Radiology: Final report received, EMP read contemporaneously, See rad report Procedures - Laceration (location) L forehead Length in cm: 2 Wound type: Linear, Into subcut fat, Into muscle, Clean Neurovascular status: Sensory intact, Motor intact, Vascular intact Anesthesia: LET Wound preparation: Irrigated copiously NS, Wound explored, To the base Skin layer closure: Nylon, Interrupted, Size #-0 - enter number (5), Sutures - enter # (5) Other: Patient tolerated well, No complications, Neurovascular intact, Tetanus booster given (tdap) PD MEDICAL DECISION MAKING - ED course Complexity details: reviewed results, re-evaluated patient, considered differential, d/w patient ED course: 80-year-old female with a ground-level fall, left-sided forehead injury. No acute findings on head CT, cervical spine CT, right wrist x-ray or left hip x- ray. Laceration repaired. Warnings of infection and instructions on wound care given at bedside. Also counseled on how to minimize scarring. Patient counseled regarding signs and symptoms for which I believe and urgent re-evaluation would be necessary. Patient with good understanding of and agreement to plan and is comfortable going home at this time This document was made in part using voice recognition software. While efforts are made to proofread this document, sound alike and grammatical errors may occur. Departure - Departure Disposition: 01 Home, Self Care Clinical Impression: Facial laceration Qualifiers: Encounter type: initial encounter Qualified Code(s): S01.81XA - Laceration without foreign body of other part of head, initial encounter Closed head injury Qualifiers: Encounter type: initial encounter Qualified Code(s): S09.90XA - Unspecified injury of head, initial encounter Contusion, wrist Qualifiers: Encounter type: initial encounter Laterality: right Qualified Code(s): S60.211A - Contusion of right wrist, initial encounter Contusion, hip Qualifiers: Encounter type: initial encounter Laterality: left Qualified Code(s): S70.02XA - Contusion of left hip, initial encounter Condition: Good Instructions: ED Head Injury Closed, ED Laceration Facial Sutr Tape Follow-Up: MELQUIADES JIMENEZ MD [Primary Care Provider] - Comments: Please follow-up with your doctor in 7 to 10 days for suture removal from your face. Return if you worsen. Keep the wound clean. You do not need to apply antibiotic ointment to this. Your x-rays and CT scans do not show any acute abnormalities tonight. Discharge Date/Time: 01/14/21 20:40
[2021-01-14] MEDS ORDERED: ACETAMINOPHEN 325 MG TABLET PO STA (20:04)
--- NOTE | 2021-01-14 20:13 | CT Report ---
PROCEDURE: HEAD WO INDICATIONS: fall, head/neck injury TECHNIQUE: Noncontrast 4.5 mm thick angled axial sections acquired from the foramen magnum to the vertex. For r adiation dose reduction, the following was used: automated exposure control, adjustment of mA and/or kV according to patient size. COMPARISON: None. FINDINGS: Image quality: Excellent. CSF spaces: Basal cisterns are patent. No extra-axial fluid collections. Ventricles are normal in size and shape. Brain: No midline shift. No intracranial masses or hemorrhage. Fishman-white matter interface is norm al. Mild scattered patchy hypodensity in the periventricular and subcortical white matter, including a small remote, or infarct in the right anterior internal capsule. Moderate atherosclerotic calcific ation of intracranial internal carotid arteries. Skull and face: Probable laceration along the left lateral frontal region. No underlying fracture. C alvarium and visualized facial bones are intact, without suspicious lesions. Small probable vascular calcifications present in the subcutaneous tissue in the bilateral temporal regions. Degenerative mona nges at the left temporal mandibular joint. Sinuses: Visualized sinuses and mastoids are clear. IMPRESSION: 1. No CT evidence of acute intracranial trauma. 2. Age-appropriate exam with mild chronic microvascular ischemic changes present. 3. Partially imaged laceration along the left lateral frontal region. No visible fracture. Reviewed by: Cierra Beyer MD on 01/14/2021 8:11 PM PDT Approved by: Cierra Beyer MD on 01/14/2021 8:11 PM PDT Station ID: [id number]
--- NOTE | 2021-01-14 20:22 | CT Report ---
PROCEDURE: CERVICAL SPINE WO INDICATIONS: fall, head/neck injury TECHNIQUE: Noncontrast 3 mm thick sections acquired from the skull base to the T4 level. Sagittal and coronal r eformats were then constructed. For radiation dose reduction, the following was used: automated exp osure control, adjustment of mA and/or kV according to patient size. COMPARISON: None. FINDINGS: Image quality: Excellent. Bones: Chronic appearing severe atlantodental joint space loss with corticated hypertrophic spur for mation and dystrophic calcifications. C1 lateral masses demonstrate normal transverse alignment on C2 with symmetric retrolisthesis due to degenerative atlantodental changes. No odontoid fractures. There is straightening of the normal cervical lordosis. Vertebral bodies are intact with normal align ment. There is severe disc height loss at C5-6 and C6-7 and moderate disc height loss at C4-5. Severe facet arthropathy on the left from C2 through C4 and facet ankylosis from C2 through C4 on the right . Severe facet arthropathy on the right from C4 through C7. Moderate bilateral foraminal narrowing at C5-6. The other levels are patent. Visualized superior ribs are intact. Soft tissues: Prevertebral soft tissues are normal in thickness. No paravertebral hematomas. No ap ical pneumothoraces. IMPRESSION: 1. No CT evidence of acute cervical spine trauma. 2. Severe degenerative changes at the atlantodental interval, at the disc spaces from C5 through C7, and in the facet joints at multiple levels. 3. Straightening of the normal cervical lordosis is likely due to muscle spasm or potentially degener ative changes. Reviewed by: Cierra Beyer MD on 01/14/2021 8:21 PM PDT Approved by: Cierra Beyer MD on 01/14/2021 8:21 PM PDT Station ID: [id number]
--- NOTE | 2021-01-14 20:25 | XRAY Report ---
PROCEDURE: Hip w/Pelvis 2-3V LT INDICATIONS: fall, L hip pain TECHNIQUE: AP pelvis with lateral view(s) of the left hip(s). COMPARISON: None. FINDINGS: Bones: Left hip arthroplasty components are present. The alignment is normal. There are no fractures or dislocation. The right hip joint demonstrates mild degenerative change. Pelvic ring appears intac t. No suspicious bony lesions. Partially imaged lower lumbar vertebral body fusion hardware. Soft ti ssues: The visualized bowel gas pattern is normal. No suspicious soft tissue calcifications. Scatt ered vascular calcifications are present. IMPRESSION: 1. Intact left hip arthroplasty components. 2. No acute fractures or dislocation. Reviewed by: Cierra Beyer MD on 01/14/2021 8:24 PM PDT Approved by: Cierra Beyer MD on 01/14/2021 8:24 PM PDT Station ID: [id number]
--- NOTE | 2021-01-14 20:28 | XRAY Report ---
PROCEDURE: Wrist 4 View RT INDICATIONS: fall, R wrist pain TECHNIQUE: 4 views of the wrist were acquired. COMPARISON: 10/01/2016 FINDINGS: Bones: Decreased mineralization. No visible fractures. There is progressive mild subluxation laterall y at the first carpometacarpal joint. Bone alignment is otherwise normal. There are severe osteoarthr itic changes including hypertrophic bone formation and subcortical cystic change with osseous remodel ing at the first CMC joint. Scattered subcortical cystic changes seen throughout the carpal bones els ewhere and at the ulnar styloid. Soft tissues: No suspicious soft tissue calcifications. Trace chondrocalcinosis at the triangle or f ibrocartilage. Mild swelling over the dorsal carpus. IMPRESSION: 1. No visible fractures. 2. Progression of now severe osteoarthritic changes in the wrist, particularly at the first carpal me tacarpal joint. 3. Dorsal soft tissue swelling. Reviewed by: Cierra Beyer MD on 01/14/2021 8:27 PM PDT Approved by: Cierra Beyer MD on 01/14/2021 8:27 PM PDT Station ID: [id number]
[2021-01-14 20:39] VITALS: BP 153/80
== END 2021-01-14 20:40 | disposition home or self-care (01) ==
LOC: ED 18:51
DX: S01.81XA Laceration without foreign body of other part of head, initial encounter (principal); S09.90XA Unspecified injury of head, initial encounter; S60.211A Contusion of right wrist, initial encounter; S70.02XA Contusion of left hip, initial encounter; W01.198A Fall on same level from slipping, tripping and stumbling with subsequent striking against other object, initial encounter; Y92.009 Unspecified place in unspecified non-institutional (private) residence as the place of occurrence of the external cause; I48.91 Unspecified atrial fibrillation; Z79.82 Long term (current) use of aspirin; Z87.891 Personal history of nicotine dependence; Z23 Encounter for immunization
CPT/HCPCS: 12011; 70450; 72125; 73110; 73502; 90471; 90715; 99282; 99284; A9270

== ENCOUNTER 2023-09-02 08:00 | Outpatient (CLI) | payer MEDICARE, OTHER | END 2023-09-02 23:59 | disposition home or self-care (01) | LOC: LAB.N 08:00 | PROVIDERS: ATTEND Specialist | DX: R30.0 Dysuria (principal) | CPT/HCPCS: 87077; 87086; 87181 ==

== ENCOUNTER 2023-09-18 23:14 | Outpatient (CLI) | payer MEDICARE, OTHER | END 2023-09-18 23:15 | disposition critical access hospital (66) | LOC: EMS 23:14 | DX: R55 Syncope and collapse (principal); R53.1 Weakness; K92.1 Melena | CPT/HCPCS: A0425; A0429 ==

== ENCOUNTER 2023-09-18 23:24 | Emergency (ER) | payer MEDICARE, OTHER ==
[2023-09-18 23:47] LABS: BASOPHILS % (AUTO) 0.3 %; EOSINOPHILS # (AUTO) 0.1 10^3/uL (0.0-0.7); HGB - HEMOGLOBIN 7.2 g/dL (12.0-16.0); LYMPHOCYTES # (AUTO) 1.2 10^3/uL (1.5-3.5); LYMPHOCYTES % (AUTO) 13.1 %; MEAN CORPUSCULAR HEMOGLOBIN 31.6 pg (27.0-31.0); MEAN CORPUSCULAR HGB CONC 32.7 g/dL (32.0-36.0); MEAN CORPUSCULAR VOLUME 96.5 fL (81.0-99.0); MEAN PLATELET VOLUME 10.1 fL (7.9-10.8); MONOCYTES # (AUTO) 0.9 10^3/uL (0.0-1.0); MONOCYTES % (AUTO) 10.1 %; NEUTROPHILS # (AUTO) 6.7 10^3/uL (1.5-6.6); NEUTROPHILS % (AUTO) 74.8 %; PLT - PLATELET COUNT 240 10^3/uL (130-450); RED BLOOD COUNT 2.28 10^6/uL (4.20-5.40); WHITE BLOOD COUNT 8.9 x10^3/uL (4.8-10.8)
[2023-09-18] MEDS: SODIUM CHLORIDE 0.9% 500 ML IV STA (23:55)
--- NOTE | 2023-09-18 23:56 | ED Physician Documentation ---
History of Present Illness - Stated complaint Stated Complaint: NEAR SYNCOPE - Chief complaint Chief Complaint: Neuro - History obtained from History obtained from: Patient - Additonal information Additional information: 82-year-old woman with past medical history of A-fib s/p watchman on diltiazem, psoriatic arthritis, chronic pain on tramadol 50mg five times daily, p/w multiple episodes of imbalance/near syncope over the past few days, with episode tonight of weakness while sitting on the toilet. Patient was unable to get up for a long time therefore called ems. of note, patient states she took 2 pills of her 50mg tramadol 45 min block captain, after she had already started to feel her symptoms of weakness on the toilet. Also of note, patient has history of hemorrhoids; noticed increased frequency and volume of brbpr for the past two days. denies medication changes, fever, nausea, diarrhea, fnd. PD PAST MEDICAL HISTORY - Past Medical History Past Medical History: Yes Cardiovascular: Atrial fibrillation Respiratory: None, Pneumonia Neuro: Peripheral neuropathy Endocrine/Autoimmune: Other GI: None HOSPITAL COOK: None : Kidney stones HEENT: None Psych: None Musculoskeletal: Osteoarthritis Derm: Psoriasis - Past Surgical History Past Surgical History: Yes General: Cholecystectomy, Appendectomy, Colonoscopy Ortho: Other /HOSPITAL COOK: Dilation and currettage, Hysterectomy - Present Medications Home Medications: Ambulatory Orders Medication Instructions Recorded Confirmed Hydrochlorothiazide 25 mg PO DAILY 11/08/12 09/19/23 Pantoprazole Sodium [Protonix] 40 mg PO BID 11/08/12 09/19/23 traMADol [Ultram] 50 mg PO Q6H PRN 11/08/12 09/19/23 Celecoxib [CeleBREX] 200 mg PO BID 05/27/13 09/19/23 Cholecalciferol (Vitamin D3) 2,000 unit PO DAILY 01/24/15 09/19/23 [Vitamin D-3] Vitamin B Complex [B Complex] 1 tab PO DAILY 01/24/15 09/19/23 Potassium Chloride 10 meq PO DAILY 12/14/18 09/19/23 Ascorbic Acid [Vitamin C] 1 tab PO DAILY 01/21/20 09/19/23 Calcium Citrate 800 unit PO BID 01/21/20 09/19/23 Diltiazem HCl [Cardizem Cd] 300 mg PO DAILY 01/21/20 09/19/23 Magnesium Glycinate [Magnesium 500 mg PO TID 01/21/20 09/19/23 Bisglycinate Chelate] Pregabalin 75 mg PO BID 01/21/20 09/19/23 Trospium Chloride [Trospium 60 mg PO DAILY 11/25/22 09/19/23 Chloride ER] Aspirin Chewable [St Elder 81 mg PO DAILY 09/19/23 09/19/23 Aspirin] Ferrous Sulfate 325 mg PO DAILY 09/19/23 09/19/23 - Allergies Allergies/Adverse Reactions: Allergies Allergy/AdvReac Type Severity Reaction Status Date / Time leflunomide AdvReac Emesis Verified 09/18/23 23:36 levofloxacin AdvReac Itching Verified 09/18/23 23:36 methotrexate AdvReac Unknown Verified 09/18/23 23:36 milk AdvReac Cramps Verified 09/18/23 23:36 mushroom AdvReac Nausea Verified 09/18/23 23:36 - Social History Does the pt smoke?: Yes Smoking Status: Current every day smoker Does the pt drink ETOH?: Yes Does the pt have substance abuse?: No - Immunizations Immunizations are current?: Yes - POLST Patient has POLST: No PD ED PE NORMAL - Vitals Vital signs reviewed: Yes - General General: Alert and oriented X 3, No acute distress, Well developed/nourished - HEENT HEENT: Atraumatic, PERRL, EOMI, Moist mucous membranes, Pharynx benign - Neck Neck: Supple, no meningeal sign - Cardiac Cardiac: RRR - Respiratory Respiratory: No respiratory distress, Clear bilaterally - Abdomen Abdomen: Non tender, Non distended - Rectal Rectal: Pt declined - Derm Derm: Normal color, Warm and dry - Extremities Extremities: No deformity, No edema - Neuro Neuro: Alert and oriented X 3, sock lining stitcher 2-12 intact, No motor deficit, No sensory deficit, Normal speech Eye Opening: Spontaneous Motor: Obeys Commands Verbal: Oriented GCS Score: 15 Results - Vitals Vitals: Vital Signs - 24 hr 09/18/23 09/18/23 09/18/23 23:20 23:51 23:54 Temperature 36.8 C Heart Rate 97 99 Heart Rate [ Brachial] Heart Rate [ 102 H Sitting] Heart Rate [ 114 H Standing] Heart Rate [ 92 Supine] Respiratory 12 25 H Rate Blood Pressure 131/77 H 131/77 H Blood Pressure [Right Brachial artery] Blood Pressure 129/75 [Sitting] Blood Pressure 104/57 L [Standing] Blood Pressure 136/66 H [Supine] O2 Saturation 98 97 09/19/23 09/19/23 09/19/23 00:29 00:30 01:05 Temperature 36.8 C Heart Rate 96 94 95 Heart Rate [ Brachial] Heart Rate [ Sitting] Heart Rate [ Standing] Heart Rate [ Supine] Respiratory 22 16 15 Rate Blood Pressure 100/61 149/72 H 151/71 H Blood Pressure [Right Brachial artery] Blood Pressure [Sitting] Blood Pressure [Standing] Blood Pressure [Supine] O2 Saturation 100 100 99 09/19/23 09/19/23 09/19/23 01:50 02:26 02:36 Temperature 37.1 C 36.8 C Heart Rate 95 Heart Rate [ 97 Brachial] Heart Rate [ Sitting] Heart Rate [ Standing] Heart Rate [ Supine] Respiratory 13 12 13 Rate Blood Pressure 148/82 H Blood Pressure 115/88 H 151/60 H [Right Brachial artery] Blood Pressure [Sitting] Blood Pressure [Standing] Blood Pressure [Supine] O2 Saturation 95 96 100 09/19/23 09/19/23 09/19/23 02:41 02:46 02:51 Temperature 36.8 C 36.9 C 36.7 C Heart Rate Heart Rate [ 99 96 96 Brachial] Heart Rate [ Sitting] Heart Rate [ Standing] Heart Rate [ Supine] Respiratory 17 16 17 Rate Blood Pressure Blood Pressure 126/63 137/67 H 137/65 H [Right Brachial artery] Blood Pressure [Sitting] Blood Pressure [Standing] Blood Pressure [Supine] O2 Saturation 100 99 100 09/19/23 09/19/23 09/19/23 03:06 03:21 03:36 Temperature 37.0 C 36.9 C 36.5 C Heart Rate Heart Rate [ 98 90 95 Brachial] Heart Rate [ Sitting] Heart Rate [ Standing] Heart Rate [ Supine] Respiratory 20 16 19 Rate Blood Pressure Blood Pressure 128/60 123/61 122/58 L [Right Brachial artery] Blood Pressure [Sitting] Blood Pressure [Standing] Blood Pressure [Supine] O2 Saturation 99 96 96 09/19/23 09/19/23 09/19/23 03:37 03:42 03:51 Temperature 36.5 C 36.8 C 36.7 C Heart Rate 95 85 Heart Rate [ 88 Brachial] Heart Rate [ Sitting] Heart Rate [ Standing] Heart Rate [ Supine] Respiratory 18 13 17 Rate Blood Pressure 122/58 L 118/68 Blood Pressure 125/61 [Right Brachial artery] Blood Pressure [Sitting] Blood Pressure [Standing] Blood Pressure [Supine] O2 Saturation 98 99 96 09/19/23 09/19/23 09/19/23 04:06 04:20 04:24 Temperature 36.9 C 36.8 C 37.0 C Heart Rate Heart Rate [ 87 88 88 Brachial] Heart Rate [ Sitting] Heart Rate [ Standing] Heart Rate [ Supine] Respiratory 14 20 16 Rate Blood Pressure Blood Pressure 120/62 125/62 123/67 [Right Brachial artery] Blood Pressure [Sitting] Blood Pressure [Standing] Blood Pressure [Supine] O2 Saturation 95 96 94 09/19/23 09/19/23 09/19/23 04:33 04:41 04:53 Temperature 36.8 C 36.8 C 36.8 C Heart Rate 88 Heart Rate [ 83 86 Brachial] Heart Rate [ Sitting] Heart Rate [ Standing] Heart Rate [ Supine] Respiratory 13 11 L 20 Rate Blood Pressure 118/61 Blood Pressure 108/58 L 118/61 [Right Brachial artery] Blood Pressure [Sitting] Blood Pressure [Standing] Blood Pressure [Supine] O2 Saturation 95 92 95 09/19/23 09/19/23 09/19/23 04:56 05:11 05:26 Temperature 36.4 C L 36.8 C 36.8 C Heart Rate Heart Rate [ 85 82 84 Brachial] Heart Rate [ Sitting] Heart Rate [ Standing] Heart Rate [ Supine] Respiratory 18 12 14 Rate Blood Pressure Blood Pressure 121/60 129/63 136/71 H [Right Brachial artery] Blood Pressure [Sitting] Blood Pressure [Standing] Blood Pressure [Supine] O2 Saturation 99 96 96 09/19/23 09/19/23 09/19/23 05:41 06:03 06:08 Temperature 36.8 C 36.4 C L 36.4 C L Heart Rate 83 Heart Rate [ 88 82 Brachial] Heart Rate [ Sitting] Heart Rate [ Standing] Heart Rate [ Supine] Respiratory 20 12 12 Rate Blood Pressure 133/68 H Blood Pressure 143/80 H 133/68 H [Right Brachial artery] Blood Pressure [Sitting] Blood Pressure [Standing] Blood Pressure [Supine] O2 Saturation 97 98 97 09/19/23 09/19/2324 06:13 06:16 06:27 Temperature 36.4 C L 36.4 C L 36.6 C Heart Rate 92 Heart Rate [ 81 84 Brachial] Heart Rate [ Sitting] Heart Rate [ Standing] Heart Rate [ Supine] Respiratory 14 13 13 Rate Blood Pressure 110/89 H Blood Pressure 110/89 H 146/93 H [Right Brachial artery] Blood Pressure [Sitting] Blood Pressure [Standing] Blood Pressure [Supine] O2 Saturation 98 96 96 09/19/23 09/19/23 06:51 06:56 Temperature 36.4 C L 36.4 C L Heart Rate 77 Heart Rate [ Brachial] Heart Rate [ Sitting] Heart Rate [ Standing] Heart Rate [ Supine] Respiratory 16 Rate Blood Pressure 122/66 Blood Pressure [Right Brachial artery] Blood Pressure [Sitting] Blood Pressure [Standing] Blood Pressure [Supine] O2 Saturation 97 Oxygen O2 Source Room air - EKG (time done) 2346 EKG releavant findings:: EKG personally interpreted by author of this note. Relevant findings are: Rate: Rate (enter#) (93) Rhythm: NSR Intervals: Normal ME QRS: Normal Ischemia: Normal ST segments - Labs Labs: Laboratory Tests 09/18/23 09/18/23 09/18/23 23:44 23:44 23:44 WBC 8.9 RBC 2.28 L Hgb 7.2 L Hct 22.0 L MCV 96.5 MCH 31.6 H MCHC 32.7 RDW 16.0 H Plt Count 240 MPV 10.1 Neut # (Auto) 6.7 H Lymph # (Auto) 1.2 L [place] # (Auto) 0.9 Eos # (Auto) 0.1 Baso # (Auto) 0.0 Absolute Nucleated RBC 0.00 Nucleated RBC % 0.0 PT INR Sodium 138 Potassium 3.8 Chloride 107 Carbon Dioxide 24 Anion Gap 7.0 BUN 16 Creatinine 0.8 Estimated GFR (MDRD) 69 L Glucose 118 H Calcium 7.7 L Total Bilirubin 0.4 AST 21 ALT 18 Alkaline Phosphatase 39 L Total Protein 4.9 L Albumin 3.2 Globulin 1.7 L Albumin/Globulin Ratio 1.9 Lipase 21 Blood Type Blood Type Recheck O POSITIVE Antibody Screen Crossmatch IS Only 09/19/23 09/19/23 09/19/23 01:08 01:08 06:53 WBC 7.5 RBC 2.75 L Hgb 8.4 L Hct 25.8 L MCV 93.8 MCH 30.5 MCHC 32.6 RDW 16.0 H Plt Count 193 MPV 10.3 Neut # (Auto) 5.3 Lymph # (Auto) 1.1 L [place] # (Auto) 0.9 Eos # (Auto) 0.1 Baso # (Auto) 0.0 Absolute Nucleated RBC 0.00 Nucleated RBC % 0.0 PT 13.5 H INR 1.2 Sodium Potassium Chloride Carbon Dioxide Anion Gap BUN Creatinine Estimated GFR (MDRD) Glucose Calcium Total Bilirubin AST ALT Alkaline Phosphatase Total Protein Albumin Globulin Albumin/Globulin Ratio Lipase Blood Type O POSITIVE Blood Type Recheck Antibody Screen NEGATIVE Crossmatch IS Only See Detail PD Medical Decision Making - ED course ED course: 82yF p/w multiple presyncopal episodes over the past few days, with episode of weakness on the toilet tonight prompting her ems call. Orthostatic vital signs with 30 point drop in SBP on exam. DDX includes cardiac etiology, medication effects (possible effects of hctz, diltiazem, tramadol). Less likely that this is neurologic in origin given patient has no nystagmus, normal neurologic exam, and symptoms are more c/w lightheadedness than vertigo, and she has documented orthostatic hypotension. Plan to obtain cbc, abdominal panel, cxr, and maintain cardiac monitoring. She is due for her nighttime dose of diltiazem therefore this will be provided. IVF provided for hypotension. Plan to reevaluate. EKG looks benign, cxr negative per my wet read and outside radiologist. Patient has hb 7.2 on labwork concerning for LGIB in setting of BRBPR. She just had a clean colonoscopy in june 2023 aside from diverticuli, with hb 13.6 on 09/05/23, so it has precipitously dropped in a short span of time. No beds available inpatient overnight therefore patient is boarding in the ED for admission for colonoscopy. 1U PRBC ordered. d/w Dr. Tinoco, surgeon sales and leasing consultant who states this is likely diverticular bleeding and a repeat colonoscopy inpatient is unlikely to show findings. He recommends to reevaluate in AM and if still symptomatic, admission to medicine pending bed, with clear liquid diet in anticipation of possible colonoscopy Friday. He will consult in. 6am - patient is s/p 2 u prbc and 1 L IVF and able to use bedside commode without any dizziness. She states her weakness has improved. Hemoglobin improved from 7.2 to 8.4. Her is able to pick her up this morning and shared decision made to allow her to follow up outpatient GI at this time rather than boarding for admission. Strict return precautions given. Departure - Departure Disposition: 01 Home, Self Care Clinical Impression: Anemia, LGI bleed, BRBPR (bright red blood per rectum), Pre-syncope, Weakness, Orthostatic hypotension Condition: Fair Instructions: ED Hypotension Orthostatic, ED Hematochezia Stable Comments: You were seen in the emergency department for weakness, near fainting sensation, blood in the stool, and low hemoglobin on labwork indicating likely lower intestinal bleeding. You received a liter of IV fluids and 2 units of packed red blood cells. Your hemoglobin went from 7.2 to 8.4. You should have repeat hemoglobin checked in 3-4 days to make sure it is stable. This can be done by your primary care provider, GI, or at Walk in clinic. Please also follow-up with your director validation urgently and return to the emergency department if you have any repeat episodes of large volume bloody stool, severe weakness, or for new or worsening symptoms or other concerns. Forms: PCP List
[2023-09-19 00:10] LABS: ALBUMIN 3.2 g/dL (3.2-5.5); ALBUMIN/GLOBULIN RATIO 1.9 (1.0-2.2); BILIRUBIN,TOTAL 0.4 mg/dL (0.2-1.0); CALCIUM 7.7 mg/dL (8.5-10.3); CREATININE 0.8 mg/dL (0.6-1.3); POTASSIUM 3.8 mmol/L (3.5-4.5); TOTAL PROTEIN 4.9 g/dL (6.4-8.9)
[2023-09-19] MEDS: diltiaZEM CD 120 MG CAPSULE PO STA (00:12)
[2023-09-19] MEDS: SODIUM CHLORIDE 0.9% 500 ML IV STA (00:33)
--- NOTE | 2023-09-19 00:46 | XRAY Report ---
PROCEDURE: Chest 1V INDICATIONS: Chest Pain TECHNIQUE: One view of the chest was acquired. COMPARISON: 12/14/2018 FINDINGS: Surgical changes and devices: Bilateral shoulder arthroplasties. Right chest wall device obscures th e right lower lung. Lungs and pleura: No dense consolidation or pleural effusion. Mediastinum: Normal heart size. Suspected prominence of the mediastinal fat. Cardiomediastinal conto urs are unchanged. Possible hiatal hernia Bones and chest wall: Degenerative findings IMPRESSION: Limited single view portable radiograph without acute abnormality. Reviewed by: Andrew Ryan MD on 09/19/2023 12:45 AM PDT Approved by: Andrew Ryan MD on 09/19/2023 12:45 AM PDT Station ID: [id number]
[2023-09-19 01:20] LABS: INR 1.2 (0.8-1.2); PT - PROTHROMBIN TIME 13.5 secs (9.9-12.6)
[2023-09-19] MEDS: ONDANSETRON 4 MG/2 ML VIAL IVP PRN (01:34)
[2023-09-19] MEDS: diphenhydrAMINE ELIXIR 25 MG/10 ML UDC PO STA (01:38)
[2023-09-19] MEDS: PANTOPRAZOLE 40 MG VIAL IV STA (01:39)
[2023-09-19] MEDS: PANTOPRAZOLE 40 MG TABLET PO SCH (06:34)
[2023-09-19] MEDS: ACETAMINOPHEN 325 MG TABLET PO STA (06:39)
[2023-09-19 06:56] LABS: BASOPHILS % (AUTO) 0.4 %; EOSINOPHILS # (AUTO) 0.1 10^3/uL (0.0-0.7); EOSINOPHILS % (AUTO) 1.3 %; HCT - HEMATOCRIT 25.8 % (37.0-47.0); HGB - HEMOGLOBIN 8.4 g/dL (12.0-16.0); LYMPHOCYTES # (AUTO) 1.1 10^3/uL (1.5-3.5); LYMPHOCYTES % (AUTO) 15.1 %; MEAN CORPUSCULAR HEMOGLOBIN 30.5 pg (27.0-31.0); MEAN CORPUSCULAR HGB CONC 32.6 g/dL (32.0-36.0); MEAN CORPUSCULAR VOLUME 93.8 fL (81.0-99.0); MEAN PLATELET VOLUME 10.3 fL (7.9-10.8); MONOCYTES # (AUTO) 0.9 10^3/uL (0.0-1.0); MONOCYTES % (AUTO) 11.5 %; NEUTROPHILS # (AUTO) 5.3 10^3/uL (1.5-6.6); NEUTROPHILS % (AUTO) 71.4 %; PLT - PLATELET COUNT 193 10^3/uL (130-450); RED BLOOD COUNT 2.75 10^6/uL (4.20-5.40); WHITE BLOOD COUNT 7.5 x10^3/uL (4.8-10.8)
[2023-09-19 07:13] LABS: CALCIUM 6.9 mg/dL (8.5-10.3); POTASSIUM 3.7 mmol/L (3.5-4.5)
[2023-09-19 07:14] LABS: CREATININE 0.6 mg/dL (0.6-1.3)
[2023-09-19 07:55] VITALS: BP 112/59; O2SAT 94
== END 2023-09-19 07:51 | disposition home or self-care (01) ==
LOC: EDUNIT# → ED 23:24
DX: D64.9 Anemia, unspecified (principal); K92.1 Melena; I95.1 Orthostatic hypotension; I48.91 Unspecified atrial fibrillation; G62.9 Polyneuropathy, unspecified; Z87.442 Personal history of urinary calculi; Z79.899 Other long term (current) drug therapy; F17.200 Nicotine dependence, unspecified, uncomplicated
CPT/HCPCS: 36415; 36430; 71045; 80048; 80053; 83690; 85025; 85610; 86850; 86900; 86901; 86920; 93005; 96361; 96374; 96375; 99285; A9270; P9016

== ENCOUNTER 2023-09-22 15:33 | Emergency (ER) | payer MEDICARE, OTHER ==
[2023-09-22 16:23] LABS: BASOPHILS % (AUTO) 0.4 %; EOSINOPHILS # (AUTO) 0.1 10^3/uL (0.0-0.7); EOSINOPHILS % (AUTO) 1.7 %; HGB - HEMOGLOBIN 8.1 g/dL (12.0-16.0); LYMPHOCYTES # (AUTO) 0.8 10^3/uL (1.5-3.5); LYMPHOCYTES % (AUTO) 10.8 %; MEAN CORPUSCULAR HEMOGLOBIN 30.6 pg (27.0-31.0); MEAN CORPUSCULAR HGB CONC 31.2 g/dL (32.0-36.0); MEAN CORPUSCULAR VOLUME 98.1 fL (81.0-99.0); MEAN PLATELET VOLUME 9.7 fL (7.9-10.8); MONOCYTES # (AUTO) 0.7 10^3/uL (0.0-1.0); MONOCYTES % (AUTO) 8.5 %; NEUTROPHILS # (AUTO) 6.1 10^3/uL (1.5-6.6); NEUTROPHILS % (AUTO) 78.3 %; PLT - PLATELET COUNT 271 10^3/uL (130-450); RED BLOOD COUNT 2.65 10^6/uL (4.20-5.40); RED CELL DISTRIBUTION WIDTH 18.5 % (12.0-15.0); WHITE BLOOD COUNT 7.8 x10^3/uL (4.8-10.8)
--- NOTE | 2023-09-22 16:31 | ED Physician Documentation ---
History of Present Illness - Stated complaint Stated Complaint: WEAK/LOW BLOOD COUNT - Chief complaint Chief Complaint: General - History obtained from History obtained from: Patient - Additonal information Additional information: Patient is an 82-year-old female presenting for evaluation of generalized weakness. Patient was seen here 4 days ago with feeling presyncopal and reporting having lower GI bleeding for the prior several days. She was found to be anemic and was given 2 units of blood. She was feeling better in the morning and there were no hospital beds available so shared decision making patient felt okay to go home. Patient states that her stools have been back to normal color since . But she still feels quite weak. Denies syncope, fever, cough, chest pain or difficulty breathing. No abdominal pain, nausea or vomiting. Review of Systems Constitutional: denies: Fever Cardiac: denies: Chest pain / pressure Respiratory: denies: Dyspnea GI: denies: Abdominal Pain, Bloody / black stool (None since 09/17) Neurologic: reports: Generalized weakness PD PAST MEDICAL HISTORY - Past Medical History Past Medical History: Yes Cardiovascular: Atrial fibrillation Respiratory: None, Pneumonia Neuro: Peripheral neuropathy Endocrine/Autoimmune: Other GI: None ADULT CARE MANAGER: None : Kidney stones HEENT: None Psych: None Musculoskeletal: Osteoarthritis Derm: Psoriasis - Past Surgical History Past Surgical History: Yes General: Cholecystectomy, Appendectomy, Colonoscopy Ortho: Other /ADULT CARE MANAGER: Dilation and currettage, Hysterectomy - Present Medications Home Medications: Ambulatory Orders Medication Instructions Recorded Confirmed Hydrochlorothiazide 25 mg PO DAILY 11/08/12 09/19/23 Pantoprazole Sodium [Protonix] 40 mg PO BID 11/08/12 09/19/23 traMADol [Ultram] 50 mg PO Q6H PRN 11/08/12 09/19/23 Celecoxib [CeleBREX] 200 mg PO BID 05/27/13 09/19/23 Cholecalciferol (Vitamin D3) 2,000 unit PO DAILY 01/24/15 09/19/23 [Vitamin D-3] Vitamin B Complex [B Complex] 1 tab PO DAILY 01/24/15 09/19/23 Potassium Chloride 10 meq PO DAILY 12/14/18 09/19/23 Ascorbic Acid [Vitamin C] 1 tab PO DAILY 01/21/20 09/19/23 Calcium Citrate 800 unit PO BID 01/21/20 09/19/23 Diltiazem HCl [Cardizem Cd] 300 mg PO DAILY 01/21/20 09/19/23 Magnesium Glycinate [Magnesium 500 mg PO TID 01/21/20 09/19/23 Bisglycinate Chelate] Pregabalin 75 mg PO BID 01/21/20 09/19/23 Trospium Chloride [Trospium 60 mg PO DAILY 11/25/22 09/19/23 Chloride ER] Aspirin Chewable [St Elder 81 mg PO DAILY 09/19/23 09/19/23 Aspirin] Ferrous Sulfate 325 mg PO DAILY 09/19/23 09/19/23 - Allergies Allergies/Adverse Reactions: Allergies Allergy/AdvReac Type Severity Reaction Status Date / Time leflunomide AdvReac Emesis Verified 09/22/23 15:41 levofloxacin AdvReac Itching Verified 09/22/23 15:41 methotrexate AdvReac Unknown Verified 09/22/23 15:41 milk AdvReac Cramps Verified 09/22/23 15:41 mushroom AdvReac Nausea Verified 09/22/23 15:41 - Social History Does the pt smoke?: Yes Smoking Status: Current every day smoker Does the pt drink ETOH?: Yes Does the pt have substance abuse?: No - Immunizations Immunizations are current?: Yes - POLST Patient has POLST: No PD ED PE NORMAL - General General: Alert and oriented X 3, No acute distress, Well developed/nourished - HEENT HEENT: Atraumatic, Moist mucous membranes, Pharynx benign - Neck Neck: Supple, no meningeal sign - Cardiac Cardiac: RRR - Respiratory Respiratory: No respiratory distress, Clear bilaterally - Abdomen Abdomen: Normal bowel sounds, Soft, Non distended - Derm Derm: Warm and dry - Extremities Extremities: No edema - Neuro Neuro: Alert and oriented X 3, No motor deficit, No sensory deficit, Normal speech Results - Vitals Vitals: Vital Signs - 24 hr 09/22/23 09/22/23 09/22/23 15:41 16:15 16:45 Temperature 36.5 C Heart Rate 68 69 65 Heart Rate [ Sitting] Heart Rate [ Standing] Heart Rate [ Supine] Respiratory 16 17 18 Rate Blood Pressure 103/46 L 122/50 L 116/52 L Blood Pressure [Sitting] Blood Pressure [Standing] Blood Pressure [Supine] O2 Saturation 99 93 97 09/22/23 09/22/23 09/22/23 17:00 17:35 17:51 Temperature Heart Rate 66 71 Heart Rate [ 72 Sitting] Heart Rate [ 76 Standing] Heart Rate [ 67 Supine] Respiratory 18 16 Rate Blood Pressure 118/52 L 110/64 Blood Pressure 128/60 [Sitting] Blood Pressure 110/64 [Standing] Blood Pressure 113/51 L [Supine] O2 Saturation 95 98 09/22/23 18:00 Temperature Heart Rate 68 Heart Rate [ Sitting] Heart Rate [ Standing] Heart Rate [ Supine] Respiratory 17 Rate Blood Pressure 146/61 H Blood Pressure [Sitting] Blood Pressure [Standing] Blood Pressure [Supine] O2 Saturation 97 Oxygen O2 Source Room air - EKG (time done) 1612 EKG releavant findings:: EKG personally interpreted by author of this note. Relevant findings are: Rate 63, normal sinus rhythm, no STEMI, QTc 421 - Labs Labs: Laboratory Tests 09/22/23 09/22/23 09/22/23 16:08 16:08 17:45 WBC 7.8 RBC 2.65 L Hgb 8.1 L Hct 26.0 L MCV 98.1 MCH 30.6 MCHC 31.2 L RDW 18.5 H Plt Count 271 MPV 9.7 Neut # (Auto) 6.1 Lymph # (Auto) 0.8 L [place] # (Auto) 0.7 Eos # (Auto) 0.1 Baso # (Auto) 0.0 Absolute Nucleated RBC 0.00 Nucleated RBC % 0.0 Sodium 141 Potassium 3.5 Chloride 109 Carbon Dioxide 26 Anion Gap 6.0 BUN 14 Creatinine 0.8 Estimated GFR (MDRD) 69 L Glucose 117 H Calcium 8.7 Total Bilirubin 0.3 AST 17 ALT 15 Alkaline Phosphatase 44 Total Protein 5.2 L Albumin 3.3 Globulin 1.9 L Albumin/Globulin Ratio 1.7 Lipase 26 Urine Color YELLOW Urine Clarity CLEAR Urine pH 5.5 Ur Specific [place] 1.020 Urine Protein NEGATIVE Urine Glucose (UA) NEGATIVE Urine Ketones NEGATIVE Urine Occult Blood NEGATIVE Urine Nitrite NEGATIVE Urine Bilirubin NEGATIVE Urine Urobilinogen 0.2 (NORMAL) Ur Leukocyte Esterase NEGATIVE Ur Microscopic Review NOT INDICATED Urine Culture Comments NOT INDICATED 09/22/23 18:02 WBC RBC Hgb 8.0 L Hct 25.2 L MCV MCH MCHC RDW Plt Count MPV Neut # (Auto) Lymph # (Auto) [place] # (Auto) Eos # (Auto) Baso # (Auto) Absolute Nucleated RBC Nucleated RBC % Sodium Potassium Chloride Carbon Dioxide Anion Gap BUN Creatinine Estimated GFR (MDRD) Glucose Calcium Total Bilirubin AST ALT Alkaline Phosphatase Total Protein Albumin Globulin Albumin/Globulin Ratio Lipase Urine Color Urine Clarity Urine pH Ur Specific [place] Urine Protein Urine Glucose (UA) Urine Ketones Urine Occult Blood Urine Nitrite Urine Bilirubin Urine Urobilinogen Ur Leukocyte Esterase Ur Microscopic Review Urine Culture Comments PD Medical Decision Making - ED course Complexity details: reviewed results, d/w patient ED course: Patient is an 82-year-old female presenting for evaluation of weakness that has been going on for several days. She was seen at the end of last week after having had several episodes of bright red blood per rectum and found to be acutely anemic. She was given 2 units of blood. She was observed in the emergency department overnight as there is no admission beds available and felt better in the morning with no significant signs of ongoing bleeding and thus was discharged home. She reports that she no longer has any bleeding but still feels quite weak. She denies any other specific complaints such as chest pain, shortness of air, abdominal symptoms.Patient is afebrile. CBC, chemistries were reviewed. Patient remains anemic with a hemoglobin of 8.1 Which is not significantly changed from posttransfusion result of 8.4. Chemistries unremarkable. Feeling better with some IV fluids. I did recheck an H&H after receiving the fluids to see if there was significant dilution and it was only at 8.0. She is not at the threshold to require an emergent blood transfusion.I do suspect that her symptoms are still from the blood loss she experienced last week but her vitals have stabilized here and again there is no signs of ongoing blood loss. She has no symptoms to suggest ACS. No focal deficits to suggest stroke. Her urine is negative for infection.She is ambulatory here. Chest x-ray reviewed.Patient was counseled to continue to have close follow-up with her primary care provider. She is advised on concerning symptoms to return for. Departure - Departure Disposition: 01 Home, Self Care Clinical Impression: Anemia, Generalized weakness Condition: Stable Instructions: ED Anemia Type Not Specified, ED Weakness UKO Comments: Your testing today we again noted that you are anemic with a hemoglobin of 8.1. This is not significantly changed from your prior labs.As such it does not appear that you are having active bleeding. You were given IV fluids. Electrolytes were also checked. We did recheck your hemoglobin after fluids as fluid can cause dilution and it also did not change significantly. At this time you are not meeting the requirements for an emergent blood transfusion. You ma y still be having your symptoms due to being anemic and I would recommend continuing with your iron replacement as well as follow-up with your primary care provider.Please make sure you are staying hydrated with drinking plenty of fluids. Return to the ER if you develop any new or worsening symptoms. Forms: PCP List Discharge Date/Time: 09/22/23 18:27
[2023-09-22] MEDS: SODIUM CHLORIDE 0.9% 1,000 ML IV STA (16:34)
--- NOTE | 2023-09-22 16:35 | XRAY Report ---
PROCEDURE: Chest 1V INDICATIONS: weakness TECHNIQUE: One view of the chest was acquired. COMPARISON: 09/19/2023. FINDINGS: Surgical changes and devices: Right chest generator obscuring a portion of the medial right lung bas e. Bilateral shoulder arthroplasties Lungs and pleura: No pleural effusions or pneumothorax. Lungs are clear. Mediastinum: Mediastinal contours appear normal. Heart size is normal. At least moderate hiatal her naun. Bones and chest wall: No suspicious bony lesions. Overlying soft tissues appear unremarkable. IMPRESSION: At least moderate hiatal hernia. No acute pulmonary process noted. Reviewed by: Claude Friedman MD on 09/22/2023 4:34 PM PDT Approved by: Claude Friedman MD on 09/22/2023 4:34 PM PDT Station ID: [id number]
[2023-09-22 16:37] LABS: ALBUMIN 3.3 g/dL (3.2-5.5); ALBUMIN/GLOBULIN RATIO 1.7 (1.0-2.2); BILIRUBIN,TOTAL 0.3 mg/dL (0.2-1.0); CALCIUM 8.7 mg/dL (8.5-10.3); CREATININE 0.8 mg/dL (0.6-1.3); POTASSIUM 3.5 mmol/L (3.5-4.5); TOTAL PROTEIN 5.2 g/dL (6.4-8.9)
[2023-09-22 17:54] LABS: BILIRUBIN,URINE NEGATIVE (NEGATIVE); GLUCOSE, URINE (UA) NEGATIVE (NEGATIVE); KETONES,URINE (UA) NEGATIVE (NEGATIVE); LEUKOCYTE ESTERASE, URINE NEGATIVE (NEGATIVE); NITRITE,URINE NEGATIVE (NEGATIVE); OCCULT BLOOD,URINE NEGATIVE (NEGATIVE); PH,URINE 5.5 PH (5.0-7.5); PROTEIN,URINE NEGATIVE (NEGATIVE); UROBILINOGEN,URINE 0.2 (NORMAL) E.U./dL (NORMAL)
[2023-09-22 17:57] LABS: CLARITY,URINE CLEAR (CLEAR)
[2023-09-22 18:05] LABS: HCT - HEMATOCRIT 25.2 % (37.0-47.0)
[2023-09-22 18:33] VITALS: BP 146/61; O2SAT 97
== END 2023-09-22 18:27 | disposition home or self-care (01) ==
LOC: ED 15:33
DX: D64.9 Anemia, unspecified (principal); R53.1 Weakness; I48.91 Unspecified atrial fibrillation; G62.9 Polyneuropathy, unspecified; Z87.442 Personal history of urinary calculi; Z79.82 Long term (current) use of aspirin; Z79.899 Other long term (current) drug therapy; F17.200 Nicotine dependence, unspecified, uncomplicated
CPT/HCPCS: 36415; 80053; 81001; 81003; 83690; 85014; 85018; 85025; 87086; 93005; 99284

== ENCOUNTER 2023-11-19 08:00 | Outpatient (CLI) | payer MEDICARE, OTHER ==
[2023-11-19 16:06] LABS: BILIRUBIN,URINE NEGATIVE (NEGATIVE); GLUCOSE, URINE (UA) NEGATIVE (NEGATIVE); KETONES,URINE (UA) TRACE mg/dL (NEGATIVE); LEUKOCYTE ESTERASE, URINE SMALL (NEGATIVE); NITRITE,URINE NEGATIVE (NEGATIVE); OCCULT BLOOD,URINE TRACE-INTA (NEGATIVE); PH,URINE 5.5 PH (5.0-7.5); PROTEIN,URINE 30 mg/dL (NEGATIVE); UROBILINOGEN,URINE 0.2 (NORMAL) E.U./dL (NORMAL)
[2023-11-19 16:07] LABS: CLARITY,URINE CLOUDY (CLEAR)
[2023-11-19 16:12] LABS: RBC,URINE 0-5 /HPF (0-5); WBC,URINE >25 /HPF (0-5)
[2023-11-19 16:13] LABS: BACTERIA,URINE Rare /HPF (None Seen); SQUAMOUS EPITHELIAL CELL,UR FEW Squamous (<= Few)
== END 2023-11-19 23:59 | disposition home or self-care (01) ==
LOC: LAB 08:00
PROVIDERS: ATTEND Urology
DX: R30.0 Dysuria (principal)
CPT/HCPCS: 81001; 87086; 87181

== ENCOUNTER 2024-01-26 15:07 | Outpatient (CLI) | payer MEDICARE, OTHER | END 2024-01-26 15:08 | disposition home or self-care (01) | LOC: LAB 15:07 | PROVIDERS: ATTEND Internal Medicine Rheumatology | DX: M35.3 Polymyalgia rheumatica (principal); R79.82 Elevated C-reactive protein (CRP) | CPT/HCPCS: 36415; 85651; 86140 ==